=== PATIENT | male | born 1970 | race American Indian/Alaskan Native ===

== ENCOUNTER 2016-10-27 12:01 | Inpatient (IN) | payer MEDICAID, OTHER ==
[2016-10-27] MEDS ORDERED: Sodium Chloride 0.9% 10 ML Syringe FLUSH PRN (14:33)
--- NOTE | 2016-10-27 14:39 | EDM.PDOC ---
ED HPI Skin/Rash - General Chief Complaint: Skin Complaint Stated Complaint: LEFT LEG Time Seen by Provider: 10/27/16 14:35 Source: Reports: Patient History Limitations: Reports: No limitations - History of Present Illness INITIAL COMMENTS - FREE TEXT/NARRATIVE: Pt states that he has had a wound to his calf for the past 3 weeks and 3 days ago he started having pain and redness. Symptom Onset Date: 10/24/16 Timing: Reports: still present Location, Skin: Reports: lower extremity, left Quality: Reports: Throbbing Severity: moderate Known Identified Source: no Associated Symptoms: Reports: no other symptoms Similar Symptoms Previously: yes Recent Medical Care: no - Related Data Allergies Allergy/AdvReac Type Severity Reaction Status Date / Time No Known Allergies Allergy Verified 10/27/16 12:37 Home Meds: Ambulatory Orders Medication Instructions Recorded Confirmed Multivitamins/Minerals [Vitamins 1 tab PO BRK #30 tablet 12/04/13 10/27/16 and Minerals] Insulin Aspart [NovoLOG] 5 units SQ TIDAC 10/17/14 10/27/16 Insulin Detemir [Levemir] 35 units SQ BID 10/17/14 10/27/16 Lisinopril [Prinivil] 5 mg PO DAILY #30 tablet 02/28/16 10/27/16 Past Medical History HEENT History: Reports: None Cardiovascular History: Reports: Hypertension Respiratory History: Reports: None Gastrointestinal History: Reports: Hepatitis Genitourinary History: Reports: None Musculoskeletal History: Reports: Gout Neurological History: Reports: None Psychiatric History: Reports: Addiction Endocrine/Metabolic History: Reports: Diabetes, type II Hematologic History: Reports: None Immunologic History: Reports: None Oncologic (Cancer) History: Reports: None Dermatologic History: Reports: None - Infectious Disease History Infectious Disease History: Reports: Hepatitis C, MRSA - Past Surgical History Head Surgeries/Procedures: Reports: None Musculoskeletal Surgical History: Reports: Amputation Other Musculoskeletal Surgeries/Procedures:: 3 toes Social & Family History - Family History Family Medical History: Noncontributory - Tobacco Use Smoking Status *Q: Current Every Day Smoker Years of Tobacco use: 35 Packs/Tins Daily: 0.5 Used Tobacco, but Quit: No Second Hand Smoke Exposure: Yes - Caffeine Use Caffeine Use: Reports: Coffee, Soda - Alcohol Use Days Per Week of Alcohol Use: 1 Number of Drinks Per Day: 3 Total Drinks Per Week: 3 - Recreational Drug Use Recreational Drug Use: Yes Drug Use in Last 12 Months: Yes Recreational Drug Type: Reports: Marijuana/Hashish Recreational Drug Use Frequency: Weekly Recreational Drug Last Use: 1week ago ED ROS GENERAL - Review of Systems Review Of Systems: See Below Skin: Reports: erythema, wound ED EXAM, SKIN/RASH Exam: See Below Exam Limited By: No limitations General Appearance: alert, WD/WN, no apparent distress Extremities: normal inspection, normal range of motion, non-tender, no pedal edema, normal capillary refill, leg pain, increased warmth, redness Neurological: alert, oriented, CN II-XII intact, normal cognition, normal gait, normal reflexes, no motor/sensory deficits Skin: Warm, No rash, Increased warmth (flutuent edges with necrotic appearing center. no drainage noted. ), Wound/incision Course - Vital Signs Last Recorded V/S: Last Vital Signs Temp 100.6 F 10/27/16 16:17 Pulse 112 H 10/27/16 12:48 Resp 20 10/27/16 12:48 BP 108/63 10/27/16 12:48 Pulse Ox 100 10/27/16 12:48 - Orders/Labs/Meds Orders: Active Orders 24 hr Category Date Time Status Insulin Regular, Human [NovoLIN R] Med 10/27/16 17:00 Active 5 unit SUBCUT BIDAC Sodium Chloride 0.9% [Normal Saline] 1,000 ml Med 10/27/16 15:35 Active IV .BOLUS Sodium Chloride 0.9% [Saline Flush] Med 10/27/16 14:33 Active 10 ml FLUSH ASDIRECTED PRN ceFAZolin [Ancef] 1 gm Med 10/27/16 16:12 Active Premix Bag 1 bag IV ONETIME Saline Lock Insert [OM.PC] Stat Oth 10/27/16 14:32 Ordered Medication Orders Sodium Chloride (Normal Saline) 1,000 mls @ 999 mls/hr IV .BOLUS ONE Stop: 10/27/16 16:35 Last Admin: 10/27/16 15:57 Dose: 999 mls/hr Cefazolin Sodium/Dextrose 1 gm (/ Premix) 50 mls @ 100 mls/hr IV ONETIME ONE Stop: 10/27/16 16:41 Insulin Human Regular (Novolin R) 5 unit SUBCUT BIDAC ROLLY PRN Reason: Protocol Last Admin: 10/27/16 15:57 Dose: 5 units Sodium Chloride (Saline Flush) 10 ml FLUSH ASDIRECTED PRN PRN Reason: Keep Vein Open Labs: Laboratory Tests 10/27/16 10/27/16 10/27/16 Range/Units 14:46 14:46 14:46 WBC 13.9 H (5.0-10.0) 10^3/uL RBC 3.94 L (4.6-6.2) 10^6/uL Hgb 11.2 L (14.0-18.0) g/dL Hct 34.0 L (40.0-54.0) % MCV 86.3 (80-100) fL MCH 28.4 (27.0-34.0) pg MCHC 32.9 L (33.0-35.0) g/dL Plt Count 268 (150-450) 10^3/uL Neut % (Auto) 78.5 H (42.2-75.2) % Lymph % (Auto) 11.0 L (20.5-50.1) % [place] % (Auto) 10.3 H (2-8) % Eos % (Auto) 0.1 L (1.0-3.0) % Baso % (Auto) 0.1 (0.0-1.0) % Sodium 128 L (135-145) mmol/L Potassium 4.1 (3.6-5.0) mmol/L Chloride 90 L (101-111) mmol/L Carbon Dioxide 24.0 (21.0-31.0) mmol/L Anion Gap 18.1 BUN 16 (7-18) mg/dL Creatinine 1.4 H (0.6-1.3) mg/dL Est Cr Clr Drug Dosing 70.22 mL/min Estimated GFR (MDRD) 55 Glucose 517 H* (74-105) mg/dL Lactic Acid 1.7 (0.5-2.2) mmol/L Calcium 8.4 (8.4-10.2) mg/dl C-Reactive Protein (0.0-1.3) mg/dL 10/27/16 Range/Units 14:46 WBC (5.0-10.0) 10^3/uL RBC (4.6-6.2) 10^6/uL Hgb (14.0-18.0) g/dL Hct (40.0-54.0) % MCV (80-100) fL MCH (27.0-34.0) pg MCHC (33.0-35.0) g/dL Plt Count (150-450) 10^3/uL Neut % (Auto) (42.2-75.2) % Lymph % (Auto) (20.5-50.1) % [place] % (Auto) (2-8) % Eos % (Auto) (1.0-3.0) % Baso % (Auto) (0.0-1.0) % Sodium (135-145) mmol/L Potassium (3.6-5.0) mmol/L Chloride (101-111) mmol/L Carbon Dioxide (21.0-31.0) mmol/L Anion Gap BUN (7-18) mg/dL Creatinine (0.6-1.3) mg/dL Est Cr Clr Drug Dosing mL/min Estimated GFR (MDRD) Glucose (74-105) mg/dL Lactic Acid (0.5-2.2) mmol/L Calcium (8.4-10.2) mg/dl C-Reactive Protein 15.2 H (0.0-1.3) mg/dL Meds: Medications Generic Name Dose Route Start Last Admin Trade Name Freq PRN Reason Stop Dose Admin Sodium Chloride 1,000 mls @ 999 mls/hr 10/27/16 15:35 10/27/16 15:57 Normal Saline IV 10/27/16 16:35 999 mls/hr .BOLUS ONE Administration Cefazolin Sodium/Dextrose 1 gm 50 mls @ 100 mls/hr 10/27/16 16:12 / Premix IV 10/27/16 16:41 ONETIME ONE Insulin Human Regular 5 unit 10/27/16 17:00 10/27/16 15:57 Novolin R SUBCUT 5 units BIDAC ROLLY Administration Protocol Sodium Chloride 10 ml 10/27/16 14:33 Saline Flush FLUSH ASDIRECTED PRN Keep Vein Open - Re-Assessments/Exams Free Text/Narrative Re-Assessment/Exam: 10/27/16 16:[address] Potts who has accepted pt for admission for cellulitis Departure - Departure Time of Disposition: 16:26 Disposition: Admitted As Inpatient 66 Condition: good Clinical Impression: Cellulitis Qualifiers: Site of cellulitis: extremity Site of cellulitis of extremity: lower extremity Laterality: left Qualified Code(s): L03.116 - Cellulitis of left lower limb Diabetes Qualifiers: Diabetes mellitus type: type 2 Diabetes mellitus complication status: with skin complications Diabetes mellitus complication detail: with other skin complication Diabetes mellitus setter automatic spinning lathe insulin use: without setter automatic spinning lathe use Qualified Code(s): E11.628 - Type 2 diabetes mellitus with other skin complications Forms: ED Department Discharge - My Orders Last 24 Hours: My Active Orders 10/27/16 14:32 Saline Lock Insert [OM.PC] Stat 10/27/16 14:33 Sodium Chloride 0.9% [Saline Flush] 10 ml FLUSH ASDIRECTED PRN 10/27/16 15:35 Sodium Chloride 0.9% [Normal Saline] 1,000 ml IV .BOLUS 10/27/16 16:12 ceFAZolin [Ancef] 1 gm Premix Bag 1 bag IV ONETIME 10/27/16 17:00 Insulin Regular, Human [NovoLIN R] 5 unit SUBCUT BIDAC - Assessment/Plan Last 24 Hours: My Active Orders 10/27/16 14:32 Saline Lock Insert [OM.PC] Stat 10/27/16 14:33 Sodium Chloride 0.9% [Saline Flush] 10 ml FLUSH ASDIRECTED PRN 10/27/16 15:35 Sodium Chloride 0.9% [Normal Saline] 1,000 ml IV .BOLUS 10/27/16 16:12 ceFAZolin [Ancef] 1 gm Premix Bag 1 bag IV ONETIME 10/27/16 17:00 Insulin Regular, Human [NovoLIN R] 5 unit SUBCUT BIDAC
[2016-10-27] MEDS ORDERED: Sodium Chloride 0.9% 1,000 ML IV ONE (15:35)
[2016-10-27] MEDS ORDERED: ceFAZolin 1 GM in Premix Bag 1 BAG IV ONE (16:12)
[2016-10-27] MEDS ORDERED: Docusate Sodium 100 MG Cap PO PRN (16:45)
[2016-10-27] MEDS ORDERED: Acetaminophen 325 MG Tab PO PRN (16:45)
[2016-10-27] MEDS ORDERED: Acetaminophen/HYDROcodone 325-10 MG Tab PO PRN (16:45)
[2016-10-27] MEDS ORDERED: Insulin Regular, Human 100 Units/ML 10 ML Vial SUBCUT SCH (17:00)
--- NOTE | 2016-10-27 17:36 | HP ---
CHIEF COMPLAINT: Pain and redness on the left leg. HISTORY OF PRESENT ILLNESS: The patient is a 46-year-old male, who was admitted through the emergency room because the patient, for the last 3 weeks, has noted a wound on his left cast and for the last 3 days, started noticing some pain and redness. Because of this, he came in to the emergency room for further evaluation and management. The patient is noted to have cellulitis of the left leg. Lab workup showed also some systemic inflammatory syndrome as well as uncontrolled diabetes mellitus. REVIEW OF SYSTEMS: The patient denies any chest pain, shortness of breath, headache, abdominal pain, nausea or vomiting. PAST MEDICAL HISTORY: Remarkable for: 1. Diabetes mellitus, on insulin. 2. Hypertension. 3. History of hepatitis C. 4. MRSA. SOCIAL HISTORY: The patient is a smoker, about half pack per day. Drinks alcohol about 3 drinks per week. Admits to recreational drug use/marijuana. ALLERGIES: No known drug allergies. FAMILY HISTORY: Noncontributory. HOME MEDICATIONS: 1. Multivitamins. 2. NovoLog 5 units t.i.d. 3. Levemir 35 units b.i.d. 4. Lisinopril 5 mg daily. PHYSICAL EXAMINATION: General: The patient is alert and oriented, not in any acute distress. Vital Signs: Blood pressure is 108/63, pulse of 112, temperature of 100.6, respirations 20, saturation 100% on room air. SHEENT: Normocephalic. There is pink palpebral conjunctiva. Sclerae anicteric. No JVD. No lymphadenopathy. Heart: Regular rate and rhythm. It is regular, slightly tachycardic. No gallops. No rubs. Lungs: Equal bilaterally. No crackles. No wheezing. Abdomen: Soft and nontender. Bowel sounds positive. Extremities: Remarkable for reproducible tenderness, warmth, and redness on the left leg with necrotic ulcer that is dry on on the calf. LABORATORY AND X-RAY DATA: CBC; WBC 13.9, hemoglobin is 11.2, hematocrit is 34, platelets is 268. Comp panel; sodium is 128, chloride of 90, creatinine of 1.4. Random blood sugar is 517. C-reactive protein is 15.2. ADMITTING DIAGNOSES: 1. Cellulitis of the left lower leg. 2. Uncontrolled diabetes mellitus. 3. Hyponatremia and hypokalemia. 4. History of methicillin-resistant Staphylococcus aureus. 5. Hepatitis C. TREATMENT PLAN: The patient is going to be admitted to General Medicine floor. He will be empirically started on IV vancomycin to cover MRSA and we will also put him on Levaquin. We will increase his NovoLog to 10 units three times a day for his diabetes. We will continue with Levemir. We will also continue with monitoring of the blood sugar four times a da. We will put him on Lovenox for DVT prophylaxis. The rest of the management as necessary. The patient is a full code. [facility] /[id number]
[2016-10-27] MEDS: Levofloxacin/Dextrose 5%-Water 500 MG in Premix Bag 1 BAG IV SCH (17:42)
[2016-10-27] MEDS: Multivitamins, Therapeutic with Minerals Tab PO SCH (17:43)
[2016-10-27] MEDS: Insulin Aspart 100 Units/ML 3 ML Pen SUBCUT SCH (17:43)
[2016-10-27] MEDS: Nicotine 14 MG/24 Hr Patch TRDERM SCH (17:44)
[2016-10-27] MEDS: Sodium Chloride 0.9% 1,000 ML IV SCH (18:15)
[2016-10-27] MEDS: Insulin Detemir 100 Units/ML 3 ML Pen SUBCUT SCH (20:51)
[2016-10-28] MEDS: Sodium Chloride 0.9% 1,000 ML IV SCH ×2 (05:04→15:28)
[2016-10-28 06:56] LABS: CHLORIDE,CL 96 mmol/L (101-111); SODIUM,NA 132 mmol/L (135-145)
[2016-10-28] MEDS: oxyCODONE 5 MG Tab PO PRN ×3 (08:42→19:57)
[2016-10-28] MEDS: Lisinopril 5 MG Tab PO SCH (08:42)
[2016-10-28] MEDS: Multivitamins, Therapeutic with Minerals Tab PO SCH (08:42)
[2016-10-28] MEDS: Nicotine 14 MG/24 Hr Patch TRDERM SCH (08:43)
[2016-10-28] MEDS: Insulin Aspart 100 Units/ML 3 ML Pen SUBCUT SCH ×3 (08:44→17:00)
[2016-10-28] MEDS: Insulin Detemir 100 Units/ML 3 ML Pen SUBCUT SCH ×2 (08:45→21:08)
[2016-10-28] MEDS: Enoxaparin 40 MG/0.4 ML Syringe SUBCUT SCH (08:46)
[2016-10-28] MEDS ORDERED: Potassium Chloride 10 MEQ Tab.ER PO ONE (09:04)
--- NOTE | 2016-10-28 10:57 | PN ---
DATE: 10/28/2016 SUBJECTIVE: The patient had a good night sleep. He still complains of some pain on the left leg, but the erythema is slowly improving. The patient denies any chest pain, shortness of breath, abdominal pain, or any other complaints. LABORATORY DATA: Lab workup this morning. Blood sugar is 178 (improving). CBC; WBC is 14.6, hemoglobin is 9.9, hematocrit is 30.1, platelet is 249. Chem- 6; potassium is 3.3, chloride of 96, sodium is 132 (improving). OBJECTIVE: Vital Signs: Blood pressure is 116/80, pulse of 89, respirations of 20, temperature of 99.8. Heart: Regular rate and rhythm. Normal S1 and S2. No gallops. No rubs. Lungs: Equal bilaterally. No crackles. No wheezing. Abdomen: Soft, nontender. Bowel sounds positive. Extremities: Still remarkable for the ulcer on the left calf, but no drainage noted. The swelling and erythema are slowly improving. MEDICATIONS: Reviewed. PLAN: We will continue with his present management including the IV Levaquin and vancomycin and continue with his Levemir and NovoLog. [facility] /[id number]
[2016-10-28] MEDS: Levofloxacin/Dextrose 5%-Water 500 MG in Premix Bag 1 BAG IV SCH (16:51)
[2016-10-29] MEDS: Insulin Aspart 100 Units/ML 3 ML Pen SUBCUT SCH ×3 (08:06→17:16)
[2016-10-29] MEDS: Multivitamins, Therapeutic with Minerals Tab PO SCH (08:07)
[2016-10-29] MEDS: oxyCODONE 5 MG Tab PO PRN ×3 (08:13→21:34)
[2016-10-29] MEDS ORDERED: Sodium Chloride 0.9% 10 ML Syringe FLUSH PRN (08:57)
[2016-10-29] MEDS: Nicotine 14 MG/24 Hr Patch TRDERM SCH (08:58)
[2016-10-29] MEDS: Enoxaparin 40 MG/0.4 ML Syringe SUBCUT SCH (09:03)
[2016-10-29] MEDS: Insulin Detemir 100 Units/ML 3 ML Pen SUBCUT SCH (09:04)
[2016-10-29] MEDS: Lisinopril 5 MG Tab PO SCH (09:09)
[2016-10-29] MEDS: Levofloxacin/Dextrose 5%-Water 500 MG in Premix Bag 1 BAG IV SCH (16:56)
[2016-10-29] MEDS: Ibuprofen 200 MG Tab PO PRN (21:42)
[2016-10-30] MEDS: Insulin Aspart 100 Units/ML 3 ML Pen SUBCUT SCH ×2 (08:12→12:56)
[2016-10-30] MEDS: oxyCODONE 5 MG Tab PO PRN (08:13)
--- NOTE | 2016-10-30 08:56 | PN ---
DATE: 10/29/2016 SUBJECTIVE: The patient continues to do well. The erythema and firmness and induration on the left lower leg actually is getting better and is getting softer. The patient denies any fever, chills, chest pain, shortness of breath, nausea, vomiting. Blood sugar this morning is 205. OBJECTIVE: Vital Signs: Blood pressure is 89/53, pulse of 92, respiration of 20, temperature of 99.2. Heart: Regular rate and rhythm. Normal S1 and S2. No gallops. No rubs. Lungs: Equal bilaterally. No crackles. No wheezing. Abdomen: Soft, nontender. Bowel sounds positive. Extremities: Still remarkable for the dry ulcer on the calf and there is still some mild erythema, but the induration is slowly improving. MEDICATIONS: Reviewed. PLAN: We will continue with his present management and continue with IV antibiotics. We will recheck CBC and Chem-6 in a.m. [facility] /[id number]
[2016-10-30] MEDS: Multivitamins, Therapeutic with Minerals Tab PO SCH (10:24)
[2016-10-30] MEDS: Ibuprofen 200 MG Tab PO PRN (10:24)
[2016-10-30] MEDS: Insulin Detemir 100 Units/ML 3 ML Pen SUBCUT SCH (10:25)
[2016-10-30] MEDS: Enoxaparin 40 MG/0.4 ML Syringe SUBCUT SCH (10:25)
[2016-10-30] MEDS: Nicotine 14 MG/24 Hr Patch TRDERM SCH (10:25)
[2016-10-30] MEDS: Lisinopril 5 MG Tab PO SCH (10:28)
--- NOTE | 2016-10-30 12:25 | PCM.DCSUM1 ---
Discharge Summary - Hospital Course Free Text/Narrative:: 46 old male with history of hepatitis C, diabetes mellitus, osteomyelitis presented to the emergency room on 10/27/16 for left calf swelling, redness, pain. problem started 3 weeks ago with pimple that started getting bigger. 2 days before admission he started having the pain in left leg. He admitted also feeling warm and cold. on admission his temperature was 100.6 Fahrenheit. WBC 13.9. Hemoglobin 11.2. Sodium 128. Creatinine 1.4. Random blood sugar 517. CRP 15.2. He was admitted for cellulitis of the left lower leg and started on vancomycin and Levaquin. According to patient his pain and swelling is getting worse. today when he was in wheelchair and when he got up to bed he was not able to bear weight on his left leg. visit left lower extremities shows bulging with redness, fluctuation, and tenderness in the calf area. since yesterday he denies fever, chills, nausea, vomiting, headache, stomach pain, diarrhea, or any other symptoms. I spoke to Dr. Colvin, hospitalist at [facility] for transferring to patient for surgical evaluation. He kindly accepted the patient. patient does not have anybody to give him a ride. I believe it's resolved to transfer him by ambulance and S team. Patient was stable upon transfer - Discharge Data Discharge Date: 10/30/16 Discharge Disposition: DC/Tfer to Acute Hospital 02 Condition: Stable - Discharge Plan Home Medications: Home Meds Multivitamins/Minerals [Vitamins and Minerals] 1 tab PO BRK #30 tablet 12/04/13 [Rx] Insulin Aspart [NovoLOG] 5 units SQ TIDAC 10/17/14 [History] Insulin Detemir [Levemir] 35 units SQ BID 10/17/14 [History] Lisinopril [Prinivil] 5 mg PO DAILY #30 tablet 02/28/16 [Rx] - Review of Systems General: Denies: Appetite HEENT: Reports: no symptoms Pulmonary: Reports: no symptoms Cardiovascular: Reports: No Symptoms Gastrointestinal: Reports: No symptoms Genitourinary: Reports: no symptoms Musculoskeletal: Reports: no symptoms Skin: Denies: jaundice, pallor Neurological: Reports: No Symptoms Psychiatric: Reports: no symptoms - Patient Data Vitals - Most Recent: Last Vital Signs Temp 37.2 C 10/30/16 11:58 Pulse 96 10/30/16 11:58 Resp 20 10/30/16 11:58 BP 146/85 H 10/30/16 11:58 Pulse Ox 100 10/30/16 11:58 Weight - Most Recent: 75.387 kg I&O - Last 24 hours: Intake & Output 10/29/16 10/30/16 10/30/16 22:59 06:59 14:59 Intake Total 100 250 Balance 100 250 Lab Results - Last 24 hrs: Laboratory Results - last 24 hr 10/29/16 10/29/16 10/29/16 Range/Units 17:11 20:38 21:48 WBC (5.0-10.0) 10^3/uL RBC (4.6-6.2) 10^6/uL Hgb (14.0-18.0) g/dL Hct (40.0-54.0) % MCV (80-100) fL MCH (27.0-34.0) pg MCHC (33.0-35.0) g/dL Plt Count (150-450) 10^3/uL Neut % (Auto) (42.2-75.2) % Lymph % (Auto) (20.5-50.1) % [place] % (Auto) (2-8) % Eos % (Auto) (1.0-3.0) % Baso % (Auto) (0.0-1.0) % Sodium (135-145) mmol/L Potassium (3.6-5.0) mmol/L Chloride (101-111) mmol/L Carbon Dioxide (21.0-31.0) mmol/L Anion Gap BUN (7-18) mg/dL Creatinine (0.6-1.3) mg/dL Est Cr Clr Drug Dosing mL/min Estimated GFR (MDRD) Glucose (74-105) mg/dL POC Glucose 267 H 57 L 113 H (70-105) mg/dl Calcium (8.4-10.2) mg/dl Vancomycin Trough (10-15) ug/ml 10/30/16 10/30/16 10/30/16 Range/Units 07:46 08:37 08:37 WBC 11.4 H (5.0-10.0) 10^3/uL RBC 3.46 L (4.6-6.2) 10^6/uL Hgb 9.8 L (14.0-18.0) g/dL Hct 29.7 L (40.0-54.0) % MCV 85.8 (80-100) fL MCH 28.3 (27.0-34.0) pg MCHC 33.0 (33.0-35.0) g/dL Plt Count 256 (150-450) 10^3/uL Neut % (Auto) 82.9 H (42.2-75.2) % Lymph % (Auto) 10.2 L (20.5-50.1) % [place] % (Auto) 5.9 (2-8) % Eos % (Auto) 0.9 L (1.0-3.0) % Baso % (Auto) 0.1 (0.0-1.0) % Sodium (135-145) mmol/L Potassium (3.6-5.0) mmol/L Chloride (101-111) mmol/L Carbon Dioxide (21.0-31.0) mmol/L Anion Gap BUN (7-18) mg/dL Creatinine (0.6-1.3) mg/dL Est Cr Clr Drug Dosing mL/min Estimated GFR (MDRD) Glucose (74-105) mg/dL POC Glucose 283 H (70-105) mg/dl Calcium (8.4-10.2) mg/dl Vancomycin Trough 29.2 H (10-15) ug/ml 10/30/16 10/30/16 Range/Units 08:37 10:47 WBC (5.0-10.0) 10^3/uL RBC (4.6-6.2) 10^6/uL Hgb (14.0-18.0) g/dL Hct (40.0-54.0) % MCV (80-100) fL MCH (27.0-34.0) pg MCHC (33.0-35.0) g/dL Plt Count (150-450) 10^3/uL Neut % (Auto) (42.2-75.2) % Lymph % (Auto) (20.5-50.1) % [place] % (Auto) (2-8) % Eos % (Auto) (1.0-3.0) % Baso % (Auto) (0.0-1.0) % Sodium 134 L (135-145) mmol/L Potassium 3.6 (3.6-5.0) mmol/L Chloride 100 L (101-111) mmol/L Carbon Dioxide 26.0 (21.0-31.0) mmol/L Anion Gap 11.6 BUN 18 (7-18) mg/dL Creatinine 1.8 H (0.6-1.3) mg/dL Est Cr Clr Drug Dosing 54.62 mL/min Estimated GFR (MDRD) 41 Glucose 335 H (74-105) mg/dL POC Glucose 310 H (70-105) mg/dl Calcium 8.0 L (8.4-10.2) mg/dl Vancomycin Trough (10-15) ug/ml LESTER Results - Last 24 hrs: Microbiology 10/27/16 17:17 Aerobic Blood Culture - Preliminary Blood - Venous - Lab Draw NO GROWTH AFTER 2 DAYS Anaerobic Blood Culture - Preliminary NO GROWTH AFTER 2 DAYS 10/27/16 17:13 Aerobic Blood Culture - Preliminary Blood - Venous NO GROWTH AFTER 2 DAYS Anaerobic Blood Culture - Preliminary NO GROWTH AFTER 2 DAYS Med Orders - Current: Current Medications Docusate Sodium (Colace) 100 mg PO BID PRN PRN Reason: Constipation Enoxaparin Sodium (Lovenox) 40 mg SUBCUT DAILY [facility] Last Admin: 10/30/16 10:25 Dose: 40 mg Levofloxacin/Dextrose 500 mg/ (Premix) 100 mls @ 100 mls/hr IV Q24H [facility] Last Admin: 10/29/16 16:56 Dose: 100 mls/hr Vancomycin HCl 1.25 gm/ Sodium (Chloride) 250 mls @ 166.667 mls/hr IV Q24H [facility] Ibuprofen (Motrin) 200 mg PO QID PRN PRN Reason: Pain Last Admin: 10/30/16 10:24 Dose: 200 mg Insulin Aspart (Novolog) 10 unit SUBCUT TIDAC [facility] Last Admin: 10/30/16 08:12 Dose: 10 units Insulin Detemir (Levemir) 35 unit SUBCUT BID [facility] Last Admin: 10/30/16 10:25 Dose: 35 units Lisinopril (Prinivil) 5 mg PO DAILY [facility] Last Admin: 10/30/16 10:28 Dose: 5 mg Miscellaneous Information (Remove Patch) 1 ea TRDERM DAILY [facility] Last Admin: 10/30/16 10:33 Dose: Not Given Multivitamins/Minerals (Vitamins And Minerals) 1 tab PO BRK [facility] Last Admin: 10/30/16 10:24 Dose: 1 tab Nicotine (Habitrol) 14 mg TRDERM DAILY [facility] Last Admin: 10/30/16 10:25 Dose: Not Given Oxycodone HCl (Oxycodone) 5 mg PO Q4H PRN PRN Reason: Pain Last Admin: 10/30/16 08:13 Dose: 5 mg Sodium Chloride (Saline Flush) 10 ml FLUSH ASDIRECTED PRN PRN Reason: Keep Vein Open Last Admin: 10/29/16 16:56 Dose: 10 ml Sodium Chloride (Saline Flush) 10 ml FLUSH ASDIRECTED PRN PRN Reason: Keep Vein Open Vancomycin HCl (Pharmacy To Dose - Vancomycin) 1 dose .XX ASDIRECTED [facility] Discontinued Medications Acetaminophen (Tylenol) 650 mg PO Q4H PRN PRN Reason: Pain (Mild 1-3)/fever Hydrocodone Bitart/Acetaminophen ([place] 325-10 Mg) 1 tab PO Q4H PRN PRN Reason: Pain (moderate 4-6) Last Admin: 10/27/16 19:27 Dose: 1 tab Sodium Chloride (Normal Saline) 1,000 mls @ 999 mls/hr IV .BOLUS ONE Stop: 10/27/16 16:35 Last Infusion: 10/27/16 17:43 Dose: Infused Cefazolin Sodium/Dextrose 1 gm (/ Premix) 50 mls @ 100 mls/hr IV ONETIME ONE Stop: 10/27/16 16:41 Last Admin: 10/27/16 16:27 Dose: 100 mls/hr Sodium Chloride (Normal Saline) 1,000 mls @ 60 mls/hr IV ASDIRECTED [facility] Last Admin: 10/28/16 15:28 Dose: 125 mls/hr Vancomycin HCl 1.25 gm/ Sodium (Chloride) 250 mls @ 166.667 mls/hr IV Q8H [facility] Last Admin: 10/28/16 08:46 Dose: 166.667 mls/hr Vancomycin HCl 1.25 gm/ Sodium (Chloride) 250 mls @ 166.667 mls/hr IV Q12H [facility] Last Infusion: 10/30/16 00:04 Dose: Infused Insulin Human Regular (Novolin R) 5 unit SUBCUT BIDAC ROLLY PRN Reason: Protocol Last Admin: 10/27/16 15:57 Dose: 5 units Potassium Chloride (Klor-Con 10) 40 meq PO ONETIME ONE Stop: 10/28/16 09:05 Last Admin: 10/28/16 09:46 Dose: 40 meq - Exam General: Reports: alert, oriented, cooperative. Denies: no acute distress, mild distress, moderate distress, severe distress, sedated, lethargic, obtunded HEENT: Reports: Pupils equal, Pupils reactive, Mucous membr. moist/pink. Denies : Scleral icterus Neck: Reports: supple, trachea midline, no JVD Lungs: Reports: Clear to auscultation, Normal respiratory effort. Denies: Decreased breath sounds, Crackles, Rales, Rhonchi, Rub, Stridor, Wheezing Cardiovascular: Reports: Regular Rate, Regular Rhythm, No Murmurs Abdomen: Reports: bowel sounds present, soft, no tenderness, no distension. Denies: CVA tenderness (Male) Exam: No hernia Rectal (Males) Exam: Deferred Back Exam: Reports: normal inspection, full range of motion Extremities: Reports: no edema, normal pulses, no clubbing, calf tenderness (on left side, with redness and fluctuation) Skin: Reports: warm Neurological: Reports: no new focal deficit Psy/Mental Status: Reports: alert, normal affect, normal mood *Q Meaningful Use (DIS) - VTE *Q VTE Criteria *Q: - Stroke *Q Stroke Criteria *Q: - AMI *Q AMI Criteria *Q:
[2016-10-30 13:08] VITALS: BP 98/57
== END 2016-10-30 13:45 | DRG 638 ==
LOC: DL.ED 12:01 → DL.MS 16:44
PROVIDERS: ADMIT Internal Medicine; ATTEND Internal Medicine
DX: E11.628 Type 2 diabetes mellitus with other skin complications (principal); L03.116 Cellulitis of left lower limb; E87.1 Hypo-osmolality and hyponatremia; F17.210 Nicotine dependence, cigarettes, uncomplicated; Z89.429 Acquired absence of other toe(s), unspecified side; Z79.4 Long term (current) use of insulin; E87.6 Hypokalemia; Z86.14 Personal history of Methicillin resistant Staphylococcus aureus infection; I10 Essential (primary) hypertension; Z86.19 Personal history of other infectious and parasitic diseases; F12.90 Cannabis use, unspecified, uncomplicated; Z79.899 Other long term (current) drug therapy
CPT/HCPCS: 36415; 80048; 80202; 82962; 83605; 85025; 86140; 87040; 96365; 96367; 96372; 99284; A9270-GY; J0690; J1650; J1815-GY; J1956; J3370; J7030; J7050

== ENCOUNTER 2017-01-23 12:17 | Emergency (ER) | payer MEDICAID, OTHER ==
[2017-01-23 12:42] VITALS: BP 129/90
--- NOTE | 2017-01-23 12:58 | EDM.PDOC ---
ED HPI GENERAL MEDICAL PROBLEM - General Chief Complaint: Skin Complaint Stated Complaint: FROM [facility] Time Seen by Provider: 01/23/17 12:54 Source of Information: Reports: Patient History Limitations: Reports: No Limitations - History of Present Illness INITIAL COMMENTS - FREE TEXT/NARRATIVE: Pt sent from [facility] by Dr. Hodge for potential osteomyelitis. Has a non healing ulcer to the bottom of left foot. C/o pain to area of wound however denies other complaints such as fever or chills. Onset Date: 12/28/16 Duration: Constant Location: Reports: Lower Extremity, Left Quality: Reports: Ache Worsens with: Reports: None Associated Symptoms: Reports: No Other Symptoms Treatments LOT PORTER: Reports: Dressing(s) Left Feet Pain Score (Numeric/FACES): 8 - Related Data Allergies Allergy/AdvReac Type Severity Reaction Status Date / Time No Known Allergies Allergy Verified 10/27/16 12:37 Home Meds: Home Meds Multivitamins/Minerals [Vitamins and Minerals] 1 tab PO BRK #30 tablet 12/04/13 [Rx] Insulin Aspart [NovoLOG] 7 units SQ TIDAC 10/17/14 [History] Insulin Detemir [Levemir] 35 units SQ BID 10/17/14 [History] Lisinopril [Prinivil] 5 mg PO DAILY #30 tablet 02/28/16 [Rx] Past Medical History HEENT History: Reports: None Cardiovascular History: Reports: Hypertension Respiratory History: Reports: None Gastrointestinal History: Reports: Hepatitis Genitourinary History: Reports: None Musculoskeletal History: Reports: Gout Neurological History: Reports: None Psychiatric History: Reports: Addiction Endocrine/Metabolic History: Reports: Diabetes, Type II Hematologic History: Reports: None Immunologic History: Reports: None Oncologic (Cancer) History: Reports: None Dermatologic History: Reports: None - Infectious Disease History Infectious Disease History: Reports: Chicken Pox - Past Surgical History Head Surgeries/Procedures: Reports: None Musculoskeletal Surgical History: Reports: Amputation Other Musculoskeletal Surgeries/Procedures:: 3 toes Social & Family History - Family History Family Medical History: Noncontributory - Tobacco Use Smoking Status *Q: Current Every Day Smoker Years of Tobacco use: 35 Packs/Tins Daily: 0.5 Used Tobacco, but Quit: No Second Hand Smoke Exposure: Yes - Caffeine Use Caffeine Use: Reports: Coffee, Soda, Tea - Alcohol Use Days Per Week of Alcohol Use: 1 Number of Drinks Per Day: 3 Total Drinks Per Week: 3 - Recreational Drug Use Recreational Drug Use: Yes Drug Use in Last 12 Months: Yes Recreational Drug Type: Reports: Marijuana/Hashish Recreational Drug Use Frequency: Weekly Recreational Drug Last Use: 1week ago ED ROS GENERAL - Review of Systems Review Of Systems: ROS reveals no pertinent complaints other than HPI. ED EXAM, SKIN/RASH Exam: See Below Exam Limited By: No Limitations General Appearance: Alert, WD/WN, No Apparent Distress Respiratory/Chest: No Respiratory Distress, Lungs Clear, Normal Breath Sounds, No Accessory Muscle Use, Chest Non-Tender Cardiovascular: Normal Peripheral Pulses, Regular Rate, Rhythm, No Edema, No Gallop, No JVD, No Murmur, No Rub Peripheral Pulses: 4+: Posterior Tibial (L), Posterior Tibial (R), Dorsalis Pedis (L), Dorsalis Pedis (R) Extremities: Normal Inspection, Normal Range of Motion, No Pedal Edema, Normal Capillary Refill Skin: Warm, Erythema, Wound/Incision Location, Skin: Soles (left foot at toes ) Characteristics: Confluent, Erythematous (no necrosis noted, pale borders with red center) Course - Vital Signs Last Recorded V/S: Last Vital Signs Temp 98.1 F 01/23/17 12:23 Pulse 94 01/23/17 12:23 Resp 18 01/23/17 12:23 BP 129/90 01/23/17 12:23 Pulse Ox 98 01/23/17 12:23 - Orders/Labs/Meds Labs: Laboratory Tests 01/23/17 01/23/17 01/23/17 Range/Units 13:17 13:17 13:17 WBC 9.0 (5.0-10.0) 10^3/uL RBC 3.78 L (4.6-6.2) 10^6/uL Hgb 10.8 L (14.0-18.0) g/dL Hct 32.9 L (40.0-54.0) % MCV 87.0 (80-100) fL MCH 28.6 (27.0-34.0) pg MCHC 32.8 L (33.0-35.0) g/dL Plt Count 293 (150-450) 10^3/uL Neut % (Auto) 68.1 (42.2-75.2) % Lymph % (Auto) 21.8 (20.5-50.1) % [place] % (Auto) 7.5 (2-8) % Eos % (Auto) 2.3 (1.0-3.0) % Baso % (Auto) 0.3 (0.0-1.0) % ESR 48 H (0-15) mm/hr Sodium 138 (135-145) mmol/L Potassium 4.2 (3.6-5.0) mmol/L Chloride 101 (101-111) mmol/L Carbon Dioxide 27.0 (21.0-31.0) mmol/L Anion Gap 14.2 BUN 22 H (7-18) mg/dL Creatinine 1.6 H (0.6-1.3) mg/dL Est Cr Clr Drug Dosing 61.44 mL/min Estimated GFR (MDRD) 47 BUN/Creatinine Ratio 13.75 Glucose 307 H (74-105) mg/dL Lactic Acid 1.1 (0.5-2.2) mmol/L Calcium 9.0 (8.4-10.2) mg/dl Total Bilirubin 0.5 (0.2-1.0) mg/dL AST 29 (10-42) IU/L ALT 30 (10-60) IU/L Alkaline Phosphatase 92 (42-121) IU/L C-Reactive Protein (0.0-1.3) mg/dL Total Protein 7.8 (6.7-8.2) g/dl Albumin 3.4 (3.2-5.5) g/dl Globulin 4.4 Albumin/Globulin Ratio 0.77 06/27/17 Range/Units 13:17 WBC (5.0-10.0) 10^3/uL RBC (4.6-6.2) 10^6/uL Hgb (14.0-18.0) g/dL Hct (40.0-54.0) % MCV (80-100) fL MCH (27.0-34.0) pg MCHC (33.0-35.0) g/dL Plt Count (150-450) 10^3/uL Neut % (Auto) (42.2-75.2) % Lymph % (Auto) (20.5-50.1) % [place] % (Auto) (2-8) % Eos % (Auto) (1.0-3.0) % Baso % (Auto) (0.0-1.0) % ESR (0-15) mm/hr Sodium (135-145) mmol/L Potassium (3.6-5.0) mmol/L Chloride (101-111) mmol/L Carbon Dioxide (21.0-31.0) mmol/L Anion Gap BUN (7-18) mg/dL Creatinine (0.6-1.3) mg/dL Est Cr Clr Drug Dosing mL/min Estimated GFR (MDRD) BUN/Creatinine Ratio Glucose (74-105) mg/dL Lactic Acid (0.5-2.2) mmol/L Calcium (8.4-10.2) mg/dl Total Bilirubin (0.2-1.0) mg/dL AST (10-42) IU/L ALT (10-60) IU/L Alkaline Phosphatase (42-121) IU/L C-Reactive Protein 0.6 (0.0-1.3) mg/dL Total Protein (6.7-8.2) g/dl Albumin (3.2-5.5) g/dl Globulin Albumin/Globulin Ratio Meds: Medications Discontinued Medications Generic Name Dose Route Start Last Admin Trade Name Freq PRN Reason Stop Dose Admin Levofloxacin 500 mg 01/23/17 16:24 Levaquin PO 01/23/17 16:25 ONETIME ONE Levofloxacin 250 mg 01/23/17 16:24 Levaquin PO 01/23/17 16:25 ONETIME ONE Tramadol HCl 50 mg 01/23/17 16:23 Ultram PO 01/23/17 16:24 ONETIME ONE - Re-Assessments/Exams Free Text/Narrative Re-Assessment/Exam: 01/23/17 16:[address] Lee about radiologic findings. Due to no increase in WBC, CRP and mild ESR elevation, does not require admission for inpatient. Recommends Levaquin PO 750 mg for 14 days and re-evaluation of the wound. Instructions to keep wound clean with antibacterial soap given to patient and he verbalizes understanding. Departure - Departure Time of Disposition: 16:29 Disposition: Home, Self-Care 01 Condition: Good Clinical Impression: Diabetic foot ulcer Diabetic ulcer of foot associated with diabetes mellitus due to underlying condition, limited to breakdown of skin Qualifiers: Diabetic foot ulcer location: heel Laterality: left Qualified Code(s): E08.621 - Diabetes mellitus due to underlying condition with foot ulcer; L97.421 - Non- pressure chronic ulcer of left heel and midfoot limited to breakdown of skin - Discharge Information Instructions: Diabetes and Foot Care Forms: ED Department Discharge Additional Instructions: Make sure to keep the wound clean with antibacterial soap such as dial to decrease risk of infection. Take the antibiotic daily for 2 weeks. Keep your follow up appointment on . Return for any foul smelling drainage, increased warmth or increased pain to the foot.
[2017-01-23] MEDS ORDERED: traMADol 50 MG Tab PO ONE (16:23)
[2017-01-23] MEDS ORDERED: Levofloxacin 250 MG Tab PO ONE (16:24)
[2017-01-23] MEDS ORDERED: Levofloxacin 500 MG Tab PO ONE (16:24)
== END 2017-01-23 16:45 | disposition home or self-care (01) ==
LOC: DL.ED 12:17
DX: E08.621 Diabetes mellitus due to underlying condition with foot ulcer (principal); L97.421 Non-pressure chronic ulcer of left heel and midfoot limited to breakdown of skin; I10 Essential (primary) hypertension; F17.210 Nicotine dependence, cigarettes, uncomplicated; M10.9 Gout, unspecified; Z79.4 Long term (current) use of insulin
CPT/HCPCS: 36415; 73630; 80053; 83605; 85025; 85651; 86140; 99283; A9270

== ENCOUNTER 2017-11-26 16:34 | Emergency (ER) | payer MEDICAID, OTHER ==
[2017-11-26] MEDS ORDERED: Sodium Chloride 0.9% 1,000 ML IV ONE ×2 (16:56→18:11)
[2017-11-26] MEDS ORDERED: Ondansetron 4 MG/2 ML SDV IV ONE (17:00)
[2017-11-26 17:15] VITALS: BP 169/117
[2017-11-26 17:33] LABS: ACETAMINOPHEN < 10
[2017-11-26] MEDS ORDERED: Insulin Regular, Human 100 Units/ML 3 ML Vial IV ONE (17:49)
[2017-11-26] MEDS ORDERED: Pantoprazole 40 MG Vial IVPUSH ONE (17:54)
[2017-11-26] MEDS ORDERED: Octreotide 100 MCG/ML SDV IVPUSH ONE (17:54)
[2017-11-26] MEDS ORDERED: Metoclopramide 10 MG/2 ML SDV IVPUSH ONE (17:54)
--- NOTE | 2017-11-26 18:03 | EDM.PDOC ---
ED HPI GENERAL MEDICAL PROBLEM - General Chief Complaint: Diabetic Complaint Stated Complaint: IN BY AMBULANCE VOMITING Time Seen by Provider: 11/26/17 17:05 Source of Information: Reports: Patient, EMS History Limitations: Reports: No Limitations - History of Present Illness INITIAL COMMENTS - FREE TEXT/NARRATIVE: This 47 yo male patient was brought to the ED by [facility] due to nausea, vomiting and bloody vomit. The patient reports his nausea started yesterday, but the bloody emesis started earlier today. The patient reports increased nausea and vomiting when he lays in his side. The patient is a diabetic and his sugars read high. The patient reports being hospitalized for DKA as well as GI bleeding in the past. Onset Date: 11/25/17 Duration: Constant, Getting Worse Location: Reports: Abdomen Quality: Reports: Other Severity: Moderate Improves with: Reports: None Worsens with: Reports: None Associated Symptoms: Reports: No Other Symptoms Epigastric Pain Score (Numeric/FACES): 8 - Related Data Allergies Allergy/AdvReac Type Severity Reaction Status Date / Time No Known Allergies Allergy Verified 10/27/16 12:37 Home Meds: Home Meds Insulin Aspart [NovoLOG] 7 units SQ TIDAC 10/17/14 [History] Insulin Detemir [Levemir] 35 units SQ BID 10/17/14 [History] Lisinopril [Prinivil] 5 mg PO DAILY #30 tablet 02/28/16 [Rx] Past Medical History HEENT History: Reports: None Cardiovascular History: Reports: Hypertension Respiratory History: Reports: None Gastrointestinal History: Reports: Hepatitis Genitourinary History: Reports: None Musculoskeletal History: Reports: Gout Neurological History: Reports: None Psychiatric History: Reports: Addiction Endocrine/Metabolic History: Reports: Diabetes, Type II Hematologic History: Reports: None Immunologic History: Reports: None Oncologic (Cancer) History: Reports: None Dermatologic History: Reports: None - Infectious Disease History Infectious Disease History: Reports: Chicken Pox - Past Surgical History Head Surgeries/Procedures: Reports: None Musculoskeletal Surgical History: Reports: Amputation, Other (See Below) Other Musculoskeletal Surgeries/Procedures:: 3 toes Social & Family History - Family History Family Medical History: Noncontributory - Tobacco Use Smoking Status *Q: Current Every Day Smoker Years of Tobacco use: 35 Packs/Tins Daily: 0.5 Used Tobacco, but Quit: No Second Hand Smoke Exposure: Yes - Caffeine Use Caffeine Use: Reports: Coffee, Soda, Tea - Alcohol Use Days Per Week of Alcohol Use: 1 Number of Drinks Per Day: 3 Total Drinks Per Week: 3 - Recreational Drug Use Recreational Drug Use: No Drug Use in Last 12 Months: Yes Recreational Drug Type: Reports: Marijuana/Hashish Recreational Drug Use Frequency: Weekly Recreational Drug Last Use: 1week ago ED ROS GENERAL - Review of Systems Review Of Systems: ROS reveals no pertinent complaints other than HPI. ED EXAM GENERAL NO PERIP PULSE - Physical Exam Exam: See Below Exam Limited By: No Limitations General Appearance: Alert, WD/WN, Severe Distress, Thin Eye Exam: Bilateral Eye: EOMI, Normal Inspection, PERRL Ears: Normal External Exam, Normal Canal, Hearing Grossly Normal, Normal TMs Nose: Normal Inspection, Normal Mucosa, No Blood Throat/Mouth: Normal Inspection, Normal Lips, Normal Teeth, Normal Gums, Normal Oropharynx, Normal Voice, No Airway Compromise Head: Atraumatic, Normocephalic Neck: Normal Inspection, Supple, Non-Tender, Full Range of Motion Respiratory/Chest: No Respiratory Distress, Lungs Clear, Normal Breath Sounds, No Accessory Muscle Use, Chest Non-Tender Cardiovascular: Normal Peripheral Pulses, Regular Rate, Rhythm, No Edema, No Gallop, No JVD, No Murmur, No Rub GI/Abdominal: Tender (generalized tenderness) (Male) Exam: Deferred Rectal (Males) Exam: Deferred Back Exam: Normal Inspection, Full Range of Motion, NT Extremities: Normal Inspection, Normal Range of Motion, Non-Tender, Normal Capillary Refill, No Pedal Edema Neurological: Alert, Oriented, CN II-XII Intact, Normal Cognition, Normal Gait, Normal Reflexes, No Motor/Sensory Deficits Psychiatric: Anxious Skin Exam: Warm, Dry, Intact, Normal Color, No Rash Lymphatic: No Adenopathy Course - Vital Signs Last Recorded V/S: Last Vital Signs Temp 35.3 C 11/26/17 16:35 Pulse 122 H 11/26/17 16:35 Resp 25 H 11/26/17 16:35 BP 169/117 H 11/26/17 16:35 Pulse Ox 100 11/26/17 16:35 - Orders/Labs/Meds Orders: Active Orders 24 hr Category Date Time Status Gastric Occult/pH Collection D [RC] ASDIRECTED Care 11/26/17 18:03 Active DRUG SCREEN URINE BIORAD [URCHEM] Stat Lab 11/26/17 16:36 Ordered INR,PT,PROTHROMBIN TIME [COAG] Stat Lab 11/26/17 18:09 Received KETONES,BLOOD [CHEM] Stat Lab 11/26/17 18:09 Received UA W/MICROSCOPIC [URIN] Stat Lab 11/26/17 16:36 Ordered Sodium Chloride 0.9% [Normal Saline] 1,000 ml Med 11/26/17 18:11 Active IV .BOLUS Medication Orders Sodium Chloride (Normal Saline) 1,000 mls @ 999 mls/hr IV .BOLUS ONE Stop: 11/26/17 19:11 Last Admin: 11/26/17 18:12 Dose: 999 mls/hr Labs: Laboratory Tests 11/26/17 11/26/17 11/26/17 Range/Units 17:00 17:01 17:01 WBC 13.4 H (5.0-10.0) 10^3/uL RBC 5.92 (4.6-6.2) 10^6/uL Hgb 16.8 D (14.0-18.0) g/dL Hct 49.1 (40.0-54.0) % MCV 82.9 D (80-100) fL MCH 28.4 (27.0-34.0) pg MCHC 34.2 (33.0-35.0) g/dL Plt Count 117 L D (150-450) 10^3/uL Neut % (Auto) 86.5 H (42.2-75.2) % Lymph % (Auto) 8.7 L (20.5-50.1) % [place] % (Auto) 4.5 (2-8) % Eos % (Auto) 0.1 L (1.0-3.0) % Baso % (Auto) 0.2 (0.0-1.0) % Sodium (135-145) mmol/L Potassium (3.6-5.0) mmol/L Chloride (101-111) mmol/L Carbon Dioxide (21.0-31.0) mmol/L Anion Gap BUN (7-18) mg/dL Creatinine (0.6-1.3) mg/dL Est Cr Clr Drug Dosing mL/min Estimated GFR (MDRD) BUN/Creatinine Ratio Glucose (74-105) mg/dL POC Glucose > 500 H* (70-105) mg/dl Calcium (8.4-10.2) mg/dl Magnesium 2.0 (1.8-2.5) mg/dL Total Bilirubin (0.2-1.0) mg/dL AST (10-42) IU/L ALT (10-60) IU/L Alkaline Phosphatase (42-121) IU/L Total Protein (6.7-8.2) g/dl Albumin (3.2-5.5) g/dl Globulin Albumin/Globulin Ratio Amylase 86 (28-100) U/L Lipase 33 (22-51) U/L Salicylates < 4 Acetaminophen < 10 04/30/18 Range/Units 17:01 WBC (5.0-10.0) 10^3/uL RBC (4.6-6.2) 10^6/uL Hgb (14.0-18.0) g/dL Hct (40.0-54.0) % MCV (80-100) fL MCH (27.0-34.0) pg MCHC (33.0-35.0) g/dL Plt Count (150-450) 10^3/uL Neut % (Auto) (42.2-75.2) % Lymph % (Auto) (20.5-50.1) % [place] % (Auto) (2-8) % Eos % (Auto) (1.0-3.0) % Baso % (Auto) (0.0-1.0) % Sodium 131 L (135-145) mmol/L Potassium 4.5 (3.6-5.0) mmol/L Chloride 86 L D (101-111) mmol/L Carbon Dioxide 21.0 (21.0-31.0) mmol/L Anion Gap 28.5 BUN 43 H (7-18) mg/dL Creatinine 2.7 H (0.6-1.3) mg/dL Est Cr Clr Drug Dosing 36.02 mL/min Estimated GFR (MDRD) 25 BUN/Creatinine Ratio 15.92 Glucose 688 H* (74-105) mg/dL POC Glucose (70-105) mg/dl Calcium 9.4 (8.4-10.2) mg/dl Magnesium (1.8-2.5) mg/dL Total Bilirubin 1.3 H (0.2-1.0) mg/dL AST 35 (10-42) IU/L ALT 24 (10-60) IU/L Alkaline Phosphatase 130 H (42-121) IU/L Total Protein 9.5 H (6.7-8.2) g/dl Albumin 3.7 (3.2-5.5) g/dl Globulin 5.8 Albumin/Globulin Ratio 0.64 Amylase (28-100) U/L Lipase (22-51) U/L Salicylates Acetaminophen Meds: Medications Generic Name Dose Route Start Last Admin Trade Name Freq PRN Reason Stop Dose Admin Sodium Chloride 1,000 mls @ 999 mls/hr 11/26/17 18:11 11/26/17 18:12 Normal Saline IV 11/26/17 19:11 999 mls/hr .BOLUS ONE Administration Discontinued Medications Generic Name Dose Route Start Last Admin Trade Name Freq PRN Reason Stop Dose Admin Sodium Chloride 1,000 mls @ 999 mls/hr 11/26/17 16:56 11/26/17 16:58 Normal Saline IV 11/26/17 17:56 999 mls/hr .BOLUS ONE Administration Insulin Human Regular 5 unit 11/26/17 17:49 11/26/17 17:56 Humulin R IV 11/26/17 17:50 5 units ONETIME ONE Administration Metoclopramide HCl 10 mg 11/26/17 17:54 11/26/17 18:05 Reglan IVPUSH 11/26/17 17:55 10 mg ONETIME ONE Administration Octreotide Acetate 50 mcg 11/26/17 17:54 11/26/17 18:06 Sandostatin IVPUSH 11/26/17 17:55 50 mcg ONETIME ONE Administration Ondansetron HCl 4 mg 11/26/17 17:00 11/26/17 17:06 Zofran IV 11/26/17 17:01 4 mg ONETIME ONE Administration Pantoprazole Sodium 80 mg 11/26/17 17:54 11/26/17 18:05 Protonix Iv IVPUSH 11/26/17 17:55 80 mg .BOLUS ONE Administration Departure - Departure Time of Disposition: 18:26 Disposition: DC/Tfer to Acute Hospital 02 Condition: Poor Clinical Impression: Upper GI bleed DKA (diabetic ketoacidoses) Qualifiers: Diabetes mellitus type: type 1 Diabetes mellitus complication detail: without coma Qualified Code(s): E10.10 - Type 1 diabetes mellitus with ketoacidosis without coma - Discharge Information Forms: Interfacility Transfer EMTALA Care Plan Goals: Discussed the history, examination, lab, and treatments with Dr. Schafer ( Hospitalist with [facility] in [place]). Dr. Schafer accepted the patient for continued evaluation and further management. The patient will be transported by [facility]. - My Orders Last 24 Hours: My Active Orders 11/26/17 16:36 DRUG SCREEN URINE BIORAD [URCHEM] Stat UA W/MICROSCOPIC [URIN] Stat 11/26/17 18:03 Gastric Occult/pH Collection D [RC] ASDIRECTED 11/26/17 18:09 INR,PT,PROTHROMBIN TIME [COAG] Stat KETONES,BLOOD [CHEM] Stat 11/26/17 18:11 Sodium Chloride 0.9% [Normal Saline] 1,000 ml IV .BOLUS - Assessment/Plan Last 24 Hours: My Active Orders 11/26/17 16:36 DRUG SCREEN URINE BIORAD [URCHEM] Stat UA W/MICROSCOPIC [URIN] Stat 11/26/17 18:03 Gastric Occult/pH Collection D [RC] ASDIRECTED 11/26/17 18:09 INR,PT,PROTHROMBIN TIME [COAG] Stat KETONES,BLOOD [CHEM] Stat 11/26/17 18:11 Sodium Chloride 0.9% [Normal Saline] 1,000 ml IV .BOLUS
== END 2017-11-26 19:03 ==
LOC: DL.ED 16:34
DX: K92.2 Gastrointestinal hemorrhage, unspecified (principal); E11.10 Type 2 diabetes mellitus with ketoacidosis without coma; I10 Essential (primary) hypertension; F17.210 Nicotine dependence, cigarettes, uncomplicated; Z79.4 Long term (current) use of insulin; Z79.899 Other long term (current) drug therapy
CPT/HCPCS: 36415; 80053; 82009; 82150; 82271; 82962; 83690; 83735; 85025; 85610; 96361; 96374; 96375; 99285; C9113; G0480; J1815; J2354; J2405; J2765; J7030

== ENCOUNTER 2018-03-22 14:33 | Emergency (ER) | payer MEDICAID, OTHER ==
[2018-03-22 13:52] LABS: ANION GAP 11.5; CHLORIDE,CL 107 mmol/L (101-111); SODIUM,NA 142 mmol/L (135-145)
[2018-03-22 14:17] VITALS: BP 143/87
[~2018-03-22 14:33] MED LIST: 50% Dextrose in Water 50 ML Syringe IVPUSH ONE; 50% Dextrose in Water 50 ML Syringe ONE
--- NOTE | 2018-03-22 14:35 | EDM.PDOC ---
ED HPI GENERAL MEDICAL PROBLEM - General Stated Complaint: HIGH BLOOD SUGAR / AMBULANCE Time Seen by Provider: 03/22/18 13:26 Source of Information: Reports: EMS History Limitations: Reports: No Limitations - History of Present Illness INITIAL COMMENTS - FREE TEXT/NARRATIVE: This 48 yo male patient reports to the ED due to altered mentation. The patient was found in his vehicle in [facility] not responding normally. Law enforcement called the ambulance to transport the patient to the ED. The patient was awake but not responding normally. The patient's initial blood sugar was 30. Onset: Today Duration: Minutes: Location: Reports: Generalized Quality: Reports: Other Severity: Severe Improves with: Reports: None Worsens with: Reports: None - Related Data Allergies Allergy/AdvReac Type Severity Reaction Status Date / Time No Known Allergies Allergy Verified 10/27/16 12:37 Home Meds: Home Meds Insulin Aspart [NovoLOG] 7 units SQ TIDAC 10/17/14 [History] Insulin Detemir [Levemir] 35 units SQ BID 10/17/14 [History] Lisinopril [Prinivil] 5 mg PO DAILY #30 tablet 02/28/16 [Rx] Past Medical History HEENT History: Reports: None Cardiovascular History: Reports: Hypertension Respiratory History: Reports: None Gastrointestinal History: Reports: Hepatitis Genitourinary History: Reports: None Musculoskeletal History: Reports: Gout Neurological History: Reports: None Psychiatric History: Reports: Addiction Endocrine/Metabolic History: Reports: Diabetes, Type II Hematologic History: Reports: None Immunologic History: Reports: None Oncologic (Cancer) History: Reports: None Dermatologic History: Reports: None - Infectious Disease History Infectious Disease History: Reports: Chicken Pox - Past Surgical History Head Surgeries/Procedures: Reports: None HEENT Surgical History: Reports: Tonsillectomy Musculoskeletal Surgical History: Reports: Amputation, Other (See Below) Other Musculoskeletal Surgeries/Procedures:: 3 toes Social & Family History - Family History Family Medical History: Noncontributory - Tobacco Use Smoking Status *Q: Current Every Day Smoker Years of Tobacco use: 30 Packs/Tins Daily: 0.1 - Caffeine Use Caffeine Use: Reports: Coffee, Soda - Recreational Drug Use Recreational Drug Use: No ED ROS GENERAL - Review of Systems Review Of Systems: ROS reveals no pertinent complaints other than HPI. ED EXAM GENERAL NO PERIP PULSE - Physical Exam Exam: See Below Exam Limited By: No Limitations General Appearance: Obtunded, Moderate Distress, Thin Eye Exam: Bilateral Eye: EOMI, Normal Inspection, PERRL Ears: Normal External Exam, Normal Canal, Hearing Grossly Normal, Normal TMs Nose: Normal Inspection, Normal Mucosa, No Blood Throat/Mouth: Normal Inspection, Normal Lips, Normal Teeth, Normal Gums, Normal Oropharynx, Normal Voice, No Airway Compromise Head: Atraumatic, Normocephalic Neck: Normal Inspection, Supple, Non-Tender, Full Range of Motion Respiratory/Chest: No Respiratory Distress, Lungs Clear, Normal Breath Sounds, No Accessory Muscle Use, Chest Non-Tender Cardiovascular: Normal Peripheral Pulses, Regular Rate, Rhythm, No Edema, No Gallop, No JVD, No Murmur, No Rub GI/Abdominal: Normal Bowel Sounds, Soft, Non-Tender, No Organomegaly, No Distention, No Abnormal Bruit, No Mass (Male) Exam: Deferred Rectal (Males) Exam: Deferred Extremities: Normal Inspection, Normal Range of Motion, Non-Tender, Normal Capillary Refill, No Pedal Edema Neurological: Disoriented Psychiatric: Other Lymphatic: No Adenopathy Course - Vital Signs Last Recorded V/S: Last Vital Signs Temp 36.7 C 03/22/18 14:15 Pulse 80 03/22/18 14:15 Resp 16 03/22/18 14:15 BP 143/87 H 03/22/18 14:15 Pulse Ox 98 03/22/18 14:15 - Orders/Labs/Meds Orders: Active Orders 24 hr Category Date Time Status EKG Documentation Completion [RC] URGENT Care 03/22/18 13:02 Ordered DRUG SCREEN URINE BIORAD [URCHEM] Stat Lab 03/22/18 13:02 Ordered UA W/MICROSCOPIC [URIN] Stat Lab 03/22/18 13:02 Ordered Labs: Laboratory Tests 03/22/18 03/22/18 03/22/18 Range/Units 13:03 13:13 13:13 WBC (5.0-10.0) 10^3/uL RBC (4.6-6.2) 10^6/uL Hgb (14.0-18.0) g/dL Hct (40.0-54.0) % MCV (80-100) fL MCH (27.0-34.0) pg MCHC (33.0-35.0) g/dL Plt Count (150-450) 10^3/uL Neut % (Auto) (42.2-75.2) % Lymph % (Auto) (20.5-50.1) % [place] % (Auto) (2-8) % Eos % (Auto) (1.0-3.0) % Baso % (Auto) (0.0-1.0) % Sodium (135-145) mmol/L Potassium (3.6-5.0) mmol/L Chloride (101-111) mmol/L Carbon Dioxide (21.0-31.0) mmol/L Anion Gap BUN (7-18) mg/dL Creatinine (0.6-1.3) mg/dL Est Cr Clr Drug Dosing Estimated GFR (MDRD) BUN/Creatinine Ratio Glucose (74-105) mg/dL POC Glucose 33 L* (70-105) mg/dl Lactic Acid (0.5-2.2) mmol/L Calcium (8.4-10.2) mg/dl Magnesium 1.5 L (1.8-2.5) mg/dL Total Bilirubin (0.2-1.0) mg/dL AST (10-42) IU/L ALT (10-60) IU/L Alkaline Phosphatase (42-121) IU/L Ammonia 15 (11-35) umol/L Troponin I (0.00-0.02) ng/ml Total Protein (6.7-8.2) g/dl Albumin (3.2-5.5) g/dl Globulin Albumin/Globulin Ratio Ketones Negative 03/22/18 03/22/18 03/22/18 Range/Units 13:13 13:13 13:13 WBC 11.7 H (5.0-10.0) 10^3/uL RBC 4.06 L (4.6-6.2) 10^6/uL Hgb 11.3 L D (14.0-18.0) g/dL Hct 35.3 L (40.0-54.0) % MCV 86.9 D (80-100) fL MCH 27.8 (27.0-34.0) pg MCHC 32.0 L (33.0-35.0) g/dL Plt Count 448 D (150-450) 10^3/uL Neut % (Auto) 76.8 H (42.2-75.2) % Lymph % (Auto) 16.1 L (20.5-50.1) % [place] % (Auto) 4.8 (2-8) % Eos % (Auto) 2.1 (1.0-3.0) % Baso % (Auto) 0.2 (0.0-1.0) % Sodium 142 D (135-145) mmol/L Potassium 3.5 L (3.6-5.0) mmol/L Chloride 107 D (101-111) mmol/L Carbon Dioxide 27.0 (21.0-31.0) mmol/L Anion Gap 11.5 BUN 25 H (7-18) mg/dL Creatinine 1.7 H (0.6-1.3) mg/dL Est Cr Clr Drug Dosing TNP Estimated GFR (MDRD) 43 BUN/Creatinine Ratio 14.70 Glucose 28 L* (74-105) mg/dL POC Glucose (70-105) mg/dl Lactic Acid 1.3 (0.5-2.2) mmol/L Calcium 9.1 (8.4-10.2) mg/dl Magnesium (1.8-2.5) mg/dL Total Bilirubin 0.3 (0.2-1.0) mg/dL AST 54 H (10-42) IU/L ALT 44 (10-60) IU/L Alkaline Phosphatase 106 (42-121) IU/L Ammonia (11-35) umol/L Troponin I < 0.02 (0.00-0.02) ng/ml Total Protein 9.0 H (6.7-8.2) g/dl Albumin 3.5 (3.2-5.5) g/dl Globulin 5.5 Albumin/Globulin Ratio 0.64 Ketones /24/18 Range/Units 14:25 WBC (5.0-10.0) 10^3/uL RBC (4.6-6.2) 10^6/uL Hgb (14.0-18.0) g/dL Hct (40.0-54.0) % MCV (80-100) fL MCH (27.0-34.0) pg MCHC (33.0-35.0) g/dL Plt Count (150-450) 10^3/uL Neut % (Auto) (42.2-75.2) % Lymph % (Auto) (20.5-50.1) % [place] % (Auto) (2-8) % Eos % (Auto) (1.0-3.0) % Baso % (Auto) (0.0-1.0) % Sodium (135-145) mmol/L Potassium (3.6-5.0) mmol/L Chloride (101-111) mmol/L Carbon Dioxide (21.0-31.0) mmol/L Anion Gap BUN (7-18) mg/dL Creatinine (0.6-1.3) mg/dL Est Cr Clr Drug Dosing Estimated GFR (MDRD) BUN/Creatinine Ratio Glucose (74-105) mg/dL POC Glucose 190 H (70-105) mg/dl Lactic Acid (0.5-2.2) mmol/L Calcium (8.4-10.2) mg/dl Magnesium (1.8-2.5) mg/dL Total Bilirubin (0.2-1.0) mg/dL AST (10-42) IU/L ALT (10-60) IU/L Alkaline Phosphatase (42-121) IU/L Ammonia (11-35) umol/L Troponin I (0.00-0.02) ng/ml Total Protein (6.7-8.2) g/dl Albumin (3.2-5.5) g/dl Globulin Albumin/Globulin Ratio Ketones Meds: Medications Discontinued Medications Generic Name Dose Route Start Last Admin Trade Name Freq PRN Reason Stop Dose Admin Dextrose/Water 50 ml 03/22/18 13:03 03/22/18 13:43 Dextrose 50% In Water IVPUSH 03/22/18 13:04 50 ml ONETIME ONE Administration Dextrose/Water Confirm 03/22/18 13:04 03/22/18 13:43 Dextrose 50% In Water Administered 03/22/18 13:05 Not Given Dose 50 ml .ROUTE .STK-MED ONE - Re-Assessments/Exams Free Text/Narrative Re-Assessment/Exam: 03/22/18 14:43 After the patient was given an amp of D50, the patient was responding normally. The patient ate a meal and was feeling "normal". Departure - Departure Time of Disposition: 14:33 Disposition: Home, Self-Care 01 Condition: Fair Clinical Impression: Hypoglycemia - Discharge Information *PRESCRIPTION DRUG MONITORING PROGRAM REVIEWED*: Not Applicable *COPY OF PRESCRIPTION DRUG MONITORING REPORT IN PATIENT CARLITO: Not Applicable Instructions: Blood Glucose Monitoring, Adult, Hypoglycemia, [id number] Forms: ED Department Discharge Care Plan Goals: The patient was advised of the examination and lab results during the visit. The patient was encouraged to continue to monitor his blood sugars. If he has any additional symptoms or concerns, the patient should follow-up with his primary care facility or return to the emergency department. - My Orders Last 24 Hours: My Active Orders 03/22/18 13:02 EKG Documentation Completion [RC] URGENT DRUG SCREEN URINE BIORAD [URCHEM] Stat UA W/MICROSCOPIC [URIN] Stat - Assessment/Plan Last 24 Hours: My Active Orders 03/22/18 13:02 EKG Documentation Completion [RC] URGENT DRUG SCREEN URINE BIORAD [URCHEM] Stat UA W/MICROSCOPIC [URIN] Stat
--- NOTE | 2018-03-25 16:43 | EKG ---
03/22/2018 - LIN GALE YANIV JUDITH - TIME: 1:48 p.m. FINDINGS: Sinus rhythm at 83. Probable anterior infarcts. Borderline ST elevation in the inferior leads. Borderline prolonged QT interval. [facility] /[id number]
== END 2018-03-22 14:40 | disposition home or self-care (01) ==
LOC: DL.ED 14:33
DX: E11.649 Type 2 diabetes mellitus with hypoglycemia without coma (principal); I10 Essential (primary) hypertension; Z79.4 Long term (current) use of insulin; F17.210 Nicotine dependence, cigarettes, uncomplicated
CPT/HCPCS: 36415; 80053; 80305-QW; 81001; 82009; 82140; 82962; 83605; 83735; 84484; 85025; 93005; 96374; 99284; J7060

== ENCOUNTER 2019-01-02 11:10 | Emergency (ER) | payer MEDICAID ==
--- NOTE | 2019-01-02 11:50 | EDM.PDOC ---
ED HPI GENERAL MEDICAL PROBLEM - General Chief Complaint: Neurological Problem Stated Complaint: [place] Time Seen by Provider: 01/02/19 11:40 Source of Information: Reports: Patient, EMS Notes Reviewed History Limitations: Reports: No Limitations - History of Present Illness INITIAL COMMENTS - FREE TEXT/NARRATIVE: patient comes emergency department today by embolus from home with concerns of change in mentation. The ambulance was summoned this morning from the patient's family as they were concerned that he was "acting funny" with some possibly slurred speech. When EMS arrived there they checked his blood sugar which was in the mid 50s. He was given dextrose with resolution of his acting funny and slurred speech. He is brought to the emergency department to the family wants him checked out. Patient arrives and tells me that he is unsure of what day it isn't really the last thing he remembers is from Sunday. No recent falls or head injury. No headache. He takes his insulin twice a day on a set schedule as well as a sliding scale insulin but he does not check his blood sugars. 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 He does not recall any fever chills nausea vomiting. No chest pain or shortness of breath or difficulty breathing. He does not remember any oral intake. No hematuria dysuria or urinary frequency. He has noticed a decreased amount of urination. He has not been taking his blood pressure medication as he does not see any reason to because he knows he is quite chronically ill and is not long for this world. Denies being suicidal. - Related Data Allergies Allergy/AdvReac Type Severity Reaction Status Date / Time No Known Allergies Allergy Verified 01/02/19 11:30 Home Meds: Home Meds Insulin Aspart [NovoLOG] 5 units SQ TIDAC 10/17/14 [History] Insulin Detemir [Levemir] 30 units SQ BID 10/17/14 [History] Lisinopril [Prinivil] 5 mg PO DAILY #30 tablet 02/28/16 [Rx] Past Medical History HEENT History: Reports: None Cardiovascular History: Reports: Hypertension Respiratory History: Reports: None Gastrointestinal History: Reports: Hepatitis Genitourinary History: Reports: None Musculoskeletal History: Reports: Gout Neurological History: Reports: None Psychiatric History: Reports: Addiction Endocrine/Metabolic History: Reports: Diabetes, Type II, IDDM Hematologic History: Reports: None Immunologic History: Reports: None Oncologic (Cancer) History: Reports: None Dermatologic History: Reports: None - Infectious Disease History Infectious Disease History: Reports: Chicken Pox, Hepatitis C, HIV-Human Immunodeficiency Virus, MRSA - Past Surgical History Head Surgeries/Procedures: Reports: None HEENT Surgical History: Reports: Tonsillectomy Musculoskeletal Surgical History: Reports: Amputation, Other (See Below) Other Musculoskeletal Surgeries/Procedures:: toes DINESH feet Social & Family History - Family History Family Medical History: Noncontributory - Tobacco Use Smoking Status *Q: Current Every Day Smoker Years of Tobacco use: 1 Packs/Tins Daily: 0.5 Second Hand Smoke Exposure: No - Caffeine Use Caffeine Use: Reports: Coffee - Recreational Drug Use Recreational Drug Use: Yes Recreational Drug Type: Reports: Marijuana/Hashish - Living Situation & Occupation Living situation: Reports: with Family ED ROS GENERAL - Review of Systems Review Of Systems: ROS reveals no pertinent complaints other than HPI. - Physical Exam Exam: See Below Exam Limited By: No Limitations General Appearance: Alert, WD/WN, No Apparent Distress Eye Exam: Bilateral Eye: EOMI, Normal Fundi, PERRL Ears: Normal External Exam Nose: Normal Inspection Throat/Mouth: No: Normal Inspection (oral mucosa is quite dry), Normal Lips ( lips are dry and cracked) Head Exam: Atraumatic, Normocephalic Neck: Normal Inspection, Supple, Non-Tender, Full Range of Motion, Other (no JVD ) Respiratory/Chest: No Respiratory Distress, Lungs Clear, Normal Breath Sounds, No Accessory Muscle Use Cardiovascular: Normal Peripheral Pulses (bounding peripheral), Regular Rate, Rhythm, No Edema, No Murmur, No Rub. No: JVD GI/Abdominal: Normal Bowel Sounds, Soft, Non-Tender Neuro Exam (Abbreviated): Alert, Oriented, CN II-XII Intact, Normal Cognition, No Motor/Sensory Deficits Extremities: No Pedal Edema. No: Normal Inspection (left below the knee aputation without any edema well-healed without any sores. Right lower extremity in the posterior aspect of the ankle there is a rather large sore on the ankle. No erythema induration swelling ), Pedal Edema Psychiatric: Normal Affect, Normal Mood Skin Exam: Warm, Dry, Intact, Normal Color, No Rash EKG INTERPRETATION EKG Date: 01/02/19 Time: 11:53 Rhythm: NSR Rate (Beats/Min): 98 [place]: Normal P-Wave: Present QRS: Normal ST-T: Normal QT: Normal Course - Vital Signs Last Recorded V/S: Last Vital Signs Temp 35.7 C 01/02/19 12:49 Pulse 101 H 01/02/19 12:49 Resp 20 01/02/19 12:49 BP 161/124 H 01/02/19 12:49 Pulse Ox 99 01/02/19 12:49 - Orders/Labs/Meds Orders: Active Orders 24 hr Category Date Time Status EKG 12 Lead [EKG Documentation Completion] [] URGENT Care 01/02/19 11:47 Active POC Glucose [Blood Glucose Check, Bedside] [] ONETIME Care 01/02/19 12:56 Active Peripheral IV Care [] . DIRECTED Care 01/02/19 11:47 Active B-TYPE NATRIURETIC PEPTIDE,BNP [CHEM] Stat Lab 01/02/19 11:50 Received Lactated Ringers [Ringers, Lactated] 1,000 ml Med 01/02/19 12:34 Active IV .BOLUS Sodium Chloride 0.9% [Saline Flush] Med 01/02/19 11:47 Active 10 ml FLUSH ASDIRECTED PRN Peripheral IV Insertion Adult [OM.PC] Stat Oth 01/02/19 11:47 Ordered Medication Orders Lactated Ringer's (Ringers, Lactated) 1,000 mls @ 1,000 mls/hr IV .BOLUS ONE Stop: 01/02/19 13:33 Last Admin: 01/02/19 12:54 Dose: 1,000 mls/hr Sodium Chloride (Saline Flush) 10 ml FLUSH ASDIRECTED PRN PRN Reason: Keep Vein Open Last Admin: 01/02/19 12:50 Dose: 10 ml Admin: 01/02/19 12:00 Dose: 10 ml Labs: Laboratory Tests 01/02/19 01/02/19 01/02/19 Range/Units 11: 11:50 11:50 WBC 13.7 H (5.0-10.0) 10^3/uL RBC 3.95 L (4.6-6.2) 10^6/uL Hgb 10.0 L D (14.0-18.0) g/dL Hct 32.1 L (40.0-54.0) % MCV 81.3 (80-100) fL MCH 25.3 L (27.0-34.0) pg MCHC 31.2 L (33.0-35.0) g/dL Plt Count 329 (150-450) 10^3/uL Neut % (Auto) 90.0 H (42.2-75.2) % Lymph % (Auto) 6.2 L (20.5-50.1) % [place] % (Auto) 3.7 (2-8) % Eos % (Auto) 0.0 L (1.0-3.0) % Baso % (Auto) 0.1 (0.0-1.0) % Sodium 135 (135-145) mmol/L Potassium 4.5 (3.6-5.0) mmol/L Chloride 107 (101-111) mmol/L Carbon Dioxide 14.0 L (21.0-31.0) mmol/L Anion Gap 18.5 BUN 66 H D (7-18) mg/dL Creatinine 8.5 H D (0.6-1.3) mg/dL Est Cr Clr Drug Dosing 11.32 mL/min Estimated GFR (MDRD) 7 BUN/Creatinine Ratio 7.76 Glucose 142 H (74-105) mg/dL POC Glucose 225 H (70-105) mg/dl Calcium 7.5 L (8.4-10.2) mg/dl Total Bilirubin 0.7 (0.2-1.0) mg/dL AST 30 (10-42) IU/L ALT 13 (10-60) IU/L Alkaline Phosphatase 104 (42-121) IU/L Troponin I 0.03 H* (0.00-0.02) ng/ml Total Protein 8.0 (6.7-8.2) g/dl Albumin 2.5 L (3.2-5.5) g/dl Globulin 5.5 Albumin/Globulin Ratio 0.45 Meds: Medications Generic Name Dose Route Start Last Admin Trade Name Freq PRN Reason Stop Dose Admin Lactated Ringer's 1,000 mls @ 1,000 mls/hr 01/02/19 12:34 01/02/19 12:54 Ringers, Lactated IV 01/02/19 13:33 1,000 mls/hr .BOLUS ONE Administration Sodium Chloride 10 ml 06/06/19 11:47 01/02/19 12:50 Saline Flush FLUSH 10 ml ASDIRECTED PRN Administration Keep Vein Open Discontinued Medications Generic Name Dose Route Start Last Admin Trade Name Reina PRN Reason Stop Dose Admin Labetalol HCl 20 mg 01/02/19 12:37 01/02/19 12:51 Normodyne IVPUSH 01/02/19 12:38 20 mg ONETIME ONE Administration Protocol - Re-Assessments/Exams Free Text/Narrative Re-Assessment/Exam: 01/02/19 13:03 EKG is rather unremarkable. He does have a troponin 0.03 he does not have any chest pain or shortness of breath although that I think this is related to his creatinine of 8.5 and a B1 of 66. This is a quite large elevation of his creatinine and B1 from the last time he was here which was documented at about 2 for his creatinine. He is quite hypertensive in the emergency department which makes sense as he has not been taking his hypertensive medications. He was given some labetalol for his hypertension. This really looks like an acute on chronic renal failure do not see any signs of peripheral edema lungs are clear. His kidney function might also be due to his hypertension. His neuro status is unchanged. Due to his comorbid state quite elevated creatinine I called and spoke with Dr. Conde at [facility] in [place]. HPI ER course findings and concerns were relayed to him. He accepted the patient in transfer with no new orders. Departure - Departure Time of Disposition: 13:07 Disposition: DC/Tfer to [facility] 02 Clinical Impression: Hypertensive urgency, Poor compliance with medication Renal failure (ARF), acute on chronic Qualifiers: Acute renal failure type: unspecified Chronic kidney disease stage: unspecified stage Qualified Code(s): N17.9 - Acute kidney failure, unspecified; N18.9 - Chronic kidney disease, unspecified - Discharge Information Forms: ED Department Discharge - My Orders Last 24 Hours: My Active Orders 01/02/19 11:47 EKG 12 Lead [EKG Documentation Completion] [RC] URGENT Peripheral IV Care [RC] . DIRECTED Sodium Chloride 0.9% [Saline Flush] 10 ml FLUSH ASDIRECTED PRN Peripheral IV Insertion Adult [OM.PC] Stat 01/02/19 11:50 B-TYPE NATRIURETIC PEPTIDE,BNP [CHEM] Stat 01/02/19 12:34 Lactated Ringers [Ringers, Lactated] 1,000 ml IV .BOLUS 01/02/19 12:56 POC Glucose [Blood Glucose Check, Bedside] [RC] ONETIME - Assessment/Plan Last 24 Hours: My Active Orders 01/02/19 11:47 EKG 12 Lead [EKG Documentation Completion] [RC] URGENT Peripheral IV Care [RC] . DIRECTED Sodium Chloride 0.9% [Saline Flush] 10 ml FLUSH ASDIRECTED PRN Peripheral IV Insertion Adult [OM.PC] Stat 01/02/19 11:50 B-TYPE NATRIURETIC PEPTIDE,BNP [CHEM] Stat 01/02/19 12:34 Lactated Ringers [Ringers, Lactated] 1,000 ml IV .BOLUS 01/02/19 12:56 POC Glucose [Blood Glucose Check, Bedside] [] ONETIME Assessment:: Renal failure most likely acute on chronic. Hypertensive urgency DM Poor medical compliance. Plan: Transfer to [facility] Dr. Conde accepting the patient.
[2019-01-02] MEDS: Sodium Chloride 0.9% 10 ML Syringe FLUSH PRN ×2 (12:00→12:50)
[2019-01-02 12:19] LABS: ANION GAP 18.5
[2019-01-02] MEDS ORDERED: Lactated Ringers 1,000 ML IV ONE (12:34)
[2019-01-02] MEDS ORDERED: Labetalol 100 MG/20 ML MDV IVPUSH ONE (12:37)
[2019-01-02 13:35] VITALS: BP 154/99
== END 2019-01-02 14:03 ==
LOC: DL.ED 11:10
DX: I16.0 Hypertensive urgency (principal); N17.9 Acute kidney failure, unspecified; I12.9 Hypertensive chronic kidney disease with stage 1 through stage 4 chronic kidney disease, or unspecified chronic kidney disease; E11.22 Type 2 diabetes mellitus with diabetic chronic kidney disease; N18.9 Chronic kidney disease, unspecified; F17.210 Nicotine dependence, cigarettes, uncomplicated; Z91.14 Patient's other noncompliance with medication regimen; Z79.4 Long term (current) use of insulin; Z79.899 Other long term (current) drug therapy
CPT/HCPCS: 36415; 80053; 82962; 83880; 84484; 85025; 93005; 96361; 96374; 99285; J3490; J7120

== ENCOUNTER 2019-01-13 15:59 | Emergency (ER) | payer MEDICAID ==
[2019-01-13 15:42] VITALS: BP 161/102
[~2019-01-13 15:59] MED LIST changes: -50% Dextrose in Water 50 ML Syringe ONE; +Glucagon,Human Recombinant 1 MG Vial IM ONE; +Sodium Chloride 0.9% 1,000 ML IV ONE
--- NOTE | 2019-01-13 16:03 | EDM.PDOC ---
ED HPI GENERAL MEDICAL PROBLEM - General Stated Complaint: AMBULANCE Time Seen by Provider: 01/13/19 15:35 Source of Information: Reports: Patient History Limitations: Reports: No Limitations - History of Present Illness INITIAL COMMENTS - FREE TEXT/NARRATIVE: This 48 yo male patient was brought to the ED by [facility] due to a low blood sugar. The patient apparently spit the oral glucose on EMS during the visit. Upon arrival, the patient was having difficulties responding verbally. The patient's blood sugar was 42 upon arrival in the ED. Onset: Today Duration: Constant Location: Reports: Generalized Quality: Reports: Other Severity: Moderate Improves with: Reports: None Worsens with: Reports: None Context: Reports: Other Associated Symptoms: Reports: Other - Related Data Allergies Allergy/AdvReac Type Severity Reaction Status Date / Time No Known Allergies Allergy Verified 01/13/19 16:05 Home Meds: Home Meds Insulin Aspart [NovoLOG] 5 units SQ TIDAC 10/17/14 [History] Insulin Detemir [Levemir] 30 units SQ BID 10/17/14 [History] Lisinopril [Prinivil] 5 mg PO DAILY #30 tablet 02/28/16 [Rx] Past Medical History HEENT History: Reports: None Cardiovascular History: Reports: Hypertension Respiratory History: Reports: None Gastrointestinal History: Reports: Hepatitis Genitourinary History: Reports: None Musculoskeletal History: Reports: Gout Neurological History: Reports: None Psychiatric History: Reports: Addiction Endocrine/Metabolic History: Reports: Diabetes, Type II, IDDM Hematologic History: Reports: None Immunologic History: Reports: None Oncologic (Cancer) History: Reports: None Dermatologic History: Reports: None - Infectious Disease History Infectious Disease History: Reports: Chicken Pox, Hepatitis C, HIV-Human Immunodeficiency Virus, MRSA - Past Surgical History Head Surgeries/Procedures: Reports: None HEENT Surgical History: Reports: Tonsillectomy Musculoskeletal Surgical History: Reports: Amputation, Other (See Below) Other Musculoskeletal Surgeries/Procedures:: toes DINESH feet Social & Family History - Family History Family Medical History: Noncontributory - Caffeine Use Caffeine Use: Reports: Coffee - Living Situation & Occupation Living situation: Reports: with Family ED ROS GENERAL - Review of Systems Review Of Systems: ROS reveals no pertinent complaints other than HPI. ED EXAM GENERAL NO PERIP PULSE - Physical Exam Exam: See Below Exam Limited By: No Limitations General Appearance: Alert, Moderate Distress Eye Exam: Bilateral Eye: EOMI, Normal Inspection, PERRL Ears: Normal External Exam, Normal Canal, Hearing Grossly Normal, Normal TMs Nose: Normal Inspection, Normal Mucosa, No Blood Throat/Mouth: Normal Inspection, Normal Lips, Normal Teeth, Normal Gums, Normal Oropharynx, Normal Voice, No Airway Compromise Head: Atraumatic, Normocephalic Neck: Normal Inspection, Supple, Non-Tender, Full Range of Motion Respiratory/Chest: No Respiratory Distress, Lungs Clear, Normal Breath Sounds, No Accessory Muscle Use, Chest Non-Tender Cardiovascular: Normal Peripheral Pulses, Regular Rate, Rhythm, No Edema, No Gallop, No JVD, No Murmur, No Rub GI/Abdominal: Normal Bowel Sounds, Soft, Non-Tender, No Organomegaly, No Distention, No Abnormal Bruit, No Mass (Male) Exam: Deferred Rectal (Males) Exam: Deferred Back Exam: Normal Inspection, Full Range of Motion, NT Extremities: Other (left lower extremity BKN amputation) Neurological: Confused, Disoriented Psychiatric: Normal Affect, Normal Mood Skin Exam: Warm, Dry, Intact, Normal Color, No Rash Lymphatic: No Adenopathy Course - Vital Signs Last Recorded V/S: Last Vital Signs Temp 35.8 C 01/13/19 15:32 Pulse 92 01/13/19 15:41 Resp 16 01/13/19 15:32 BP 161/102 H 01/13/19 15:41 Pulse Ox 91 L 01/13/19 15:32 - Orders/Labs/Meds Orders: Active Orders 24 hr Category Date Time Status Blood Glucose Check, Bedside [RC] ONETIME Care 01/13/19 15:20 Active Blood Glucose Check, Bedside [RC] ONETIME Care 01/13/19 15:58 Active Late Tray [DIET] Routine Diet 01/13/19 16:00 Active Labs: Laboratory Tests 01/13/19 01/13/19 01/13/19 Range/Units 15:23 15:35 15:55 WBC 9.8 (5.0-10.0) 10^3/uL RBC 3.51 L (4.6-6.2) 10^6/uL Hgb 9.0 L (14.0-18.0) g/dL Hct 31.4 L (40.0-54.0) % MCV 89.5 D (80-100) fL MCH 25.6 L (27.0-34.0) pg MCHC 28.7 L (33.0-35.0) g/dL Plt Count 378 (150-450) 10^3/uL Neut % (Auto) 80.7 H (42.2-75.2) % Lymph % (Auto) 12.8 L (20.5-50.1) % [place] % (Auto) 4.0 (2-8) % Eos % (Auto) 2.3 (1.0-3.0) % Baso % (Auto) 0.2 (0.0-1.0) % POC Glucose 42 L* 107 H (70-105) mg/dl Meds: Medications Discontinued Medications Generic Name Dose Route Start Last Admin Trade Name Freq PRN Reason Stop Dose Admin Dextrose/Water 50 ml 01/13/19 15:21 01/13/19 16:01 Dextrose 50% In Water IVPUSH 01/13/19 15:22 Not Given ONETIME ONE Glucagon 1 mg 01/13/19 15:30 01/13/19 15:30 Glucagen IM 01/13/19 15:31 1 mg ONETIME ONE Administration Sodium Chloride 1,000 mls @ 250 mls/hr 01/13/19 15:21 01/13/19 16:01 Normal Saline IV 01/13/19 19:20 Not Given .BOLUS ONE - Re-Assessments/Exams Free Text/Narrative Re-Assessment/Exam: 01/13/19 16:08 After the glucagon was administered, the patient started to respond normally. The patient reports he is feeling better at this time. The patient reports he has been having difficulties with his blood sugar dropping low. The patient reports he was supposed to be seen by his primary care provider, but he missed his appointment due to the low blood sugar level. Departure - Departure Time of Disposition: 15:59 Disposition: Home, Self-Care 01 Condition: Fair Clinical Impression: Hypoglycemia - Discharge Information *PRESCRIPTION DRUG MONITORING PROGRAM REVIEWED*: Not Applicable *COPY OF PRESCRIPTION DRUG MONITORING REPORT IN PATIENT CARLITO: Not Applicable Instructions: Hypoglycemia, [id number] Referrals: PCP,None [Primary Care Provider] - Forms: ED Department Discharge Care Plan Goals: The patient was advised of the examination, lab and treatments while in the ED. The patient was given IM Glucagon while in the ED. The patient was advised to talk to his primary care provider about adjusting his Levemir. The patient was encouraged to eat a balanced meal. If the patient has any additional symptoms or concerns, the patient should either return to the emergency department or visit his primary care facility. - My Orders Last 24 Hours: My Active Orders 01/13/19 15:20 Blood Glucose Check, Bedside [RC] ONETIME 01/13/19 15:58 Blood Glucose Check, Bedside [RC] ONETIME 01/13/19 16:00 Late Tray [DIET] Routine - Assessment/Plan Last 24 Hours: My Active Orders 01/13/19 15:20 Blood Glucose Check, Bedside [RC] ONETIME 01/13/19 15:58 Blood Glucose Check, Bedside [RC] ONETIME 01/13/19 16:00 Late Tray [DIET] Routine
== END 2019-01-13 16:20 | disposition home or self-care (01) ==
LOC: DL.ED 15:59
DX: E11.649 Type 2 diabetes mellitus with hypoglycemia without coma (principal); I10 Essential (primary) hypertension; Z79.4 Long term (current) use of insulin; Z79.899 Other long term (current) drug therapy
CPT/HCPCS: 36415; 82962; 85025; 96372; 99284; J1610

== ENCOUNTER 2019-05-01 18:19 | Emergency (ER) | payer MEDICAID ==
--- NOTE | 2019-05-01 19:30 | EDM.PDOC ---
ED HPI GENERAL MEDICAL PROBLEM - General Chief Complaint: General Stated Complaint: CHILLS, DIABETIC Time Seen by Provider: 05/01/19 19:20 Source of Information: Reports: Patient History Limitations: Reports: No Limitations - History of Present Illness INITIAL COMMENTS - FREE TEXT/NARRATIVE: This 49 yo male patient report to the ED due to generalized body aches. The patient reports he has not been taking his insulin or blood pressure medications due to not being able to find his medications. The patient reports he did go to dialysis today in [place] and was advised to go to the ED. The patient decided to come to the ED here in [place]. The patient reports he [facility] , but has not done so. The patient reports he feels like his left lower extremity may have an infection where he had a below the knee amputation. Duration: Day(s):, Constant, Getting Worse Location: Reports: Generalized Quality: Reports: Pressure Severity: Moderate Improves with: Reports: None Worsens with: Reports: None Context: Reports: Other Associated Symptoms: Reports: No Other Symptoms Generalized Pain Score (Numeric/FACES): 7 - Related Data Allergies Allergy/AdvReac Type Severity Reaction Status Date / Time No Known Allergies Allergy Verified 05/01/19 18:27 Home Meds: Home Meds Insulin Aspart [NovoLOG] 5 units SQ TIDAC 10/17/14 [History] Insulin Detemir [Levemir] 15 units SQ BID 10/17/14 [History] Lisinopril [Prinivil] 5 mg PO DAILY #30 tablet 02/28/16 [Rx] Past Medical History HEENT History: Reports: None Cardiovascular History: Reports: Hypertension Respiratory History: Reports: None Gastrointestinal History: Reports: Hepatitis Genitourinary History: Reports: None Musculoskeletal History: Reports: Gout Neurological History: Reports: None Psychiatric History: Reports: Addiction Endocrine/Metabolic History: Reports: Diabetes, Type II, IDDM Hematologic History: Reports: None Immunologic History: Reports: None Oncologic (Cancer) History: Reports: None Dermatologic History: Reports: None - Infectious Disease History Infectious Disease History: Reports: Chicken Pox, Hepatitis C, HIV-Human Immunodeficiency Virus, MRSA - Past Surgical History Head Surgeries/Procedures: Reports: None HEENT Surgical History: Reports: Tonsillectomy Musculoskeletal Surgical History: Reports: Amputation, Other (See Below) Other Musculoskeletal Surgeries/Procedures:: toes DINESH feet Social & Family History - Family History Family Medical History: Noncontributory - Tobacco Use Smoking Status *Q: Current Every Day Smoker Years of Tobacco use: 37 Packs/Tins Daily: 0.1 - Caffeine Use Caffeine Use: Reports: Coffee, Tea - Recreational Drug Use Recreational Drug Use: No - Living Situation & Occupation Living situation: Reports: with Family ED ROS GENERAL - Review of Systems Review Of Systems: ROS reveals no pertinent complaints other than HPI. ED EXAM, GENERAL - Physical Exam Exam: See Below Exam Limited By: No Limitations General Appearance: Alert, WD/WN, Moderate Distress Eye Exam: Bilateral Eye: EOMI, Normal Inspection, PERRL Ears: Normal External Exam, Normal Canal, Hearing Grossly Normal, Normal TMs Nose: Normal Inspection, Normal Mucosa, No Blood Throat/Mouth: Normal Inspection, Normal Lips, Normal Teeth, Normal Gums, Normal Oropharynx, Normal Voice, No Airway Compromise Head: Atraumatic, Normocephalic Neck: Normal Inspection, Supple, Non-Tender, Full Range of Motion Respiratory/Chest: No Respiratory Distress, Lungs Clear, Normal Breath Sounds, No Accessory Muscle Use, Chest Non-Tender Cardiovascular: Normal Peripheral Pulses, Regular Rate, Rhythm, No Edema, No Gallop, No JVD, No Murmur, No Rub GI/Abdominal: Normal Bowel Sounds, Soft, Non-Tender, No Organomegaly, No Distention, No Abnormal Bruit, No Mass (Male) Exam: Deferred Rectal (Males) Exam: Deferred Back Exam: Normal Inspection, Full Range of Motion, NT Extremities: Other (below the knee amputation to the left lower e) Neurological: Alert, Oriented, CN II-XII Intact, Normal Cognition, Normal Gait, Normal Reflexes, No Motor/Sensory Deficits Psychiatric: Normal Affect, Normal Mood Skin Exam: Warm, Dry, Intact, Normal Color, No Rash Lymphatic: No Adenopathy Course - Vital Signs Last Recorded V/S: Last Vital Signs Temp 37.4 C 05/01/19 18:28 Pulse 119 H 05/01/19 18:28 Resp 16 05/01/19 18:28 BP 152/96 H 05/01/19 18:28 Pulse Ox 93 L 05/01/19 18:28 - Orders/Labs/Meds Orders: Active Orders 24 hr Category Date Time Status Blood Glucose Check, Bedside [RC] ONETIME Care 05/01/19 18:35 Active CULTURE BLOOD [BC] Stat Lab 05/01/19 19:05 Results DRUG SCREEN URINE BIORAD [URCHEM] Stat Lab 05/01/19 19:19 Ordered UA RFX LESTER AND CULT IF INDIC [URIN] Urgent Lab 05/01/19 19:19 Ordered Labs: Laboratory Tests 05/01/19 05/01/19 05/01/19 Range/Units 19:05 19:05 19:05 WBC 14.7 H (5.0-10.0) 10^3/uL RBC 3.47 L (4.6-6.2) 10^6/uL Hgb 9.6 L (14.0-18.0) g/dL Hct 30.4 L (40.0-54.0) % MCV 87.6 (80-100) fL MCH 27.7 (27.0-34.0) pg MCHC 31.6 L (33.0-35.0) g/dL Plt Count 312 (150-450) 10^3/uL Neut % (Auto) 86.9 H (42.2-75.2) % Lymph % (Auto) 6.0 L (20.5-50.1) % [place] % (Auto) 6.4 (2-8) % Eos % (Auto) 0.6 L (1.0-3.0) % Baso % (Auto) 0.1 (0.0-1.0) % Sodium 131 L (135-145) mmol/L Potassium 3.6 (3.6-5.0) mmol/L Chloride 95 L D (101-111) mmol/L Carbon Dioxide 29.0 D (21.0-31.0) mmol/L Anion Gap 10.6 BUN 21 H D (7-18) mg/dL Creatinine 3.6 H D (0.6-1.3) mg/dL Est Cr Clr Drug Dosing 25.64 mL/min Estimated GFR (MDRD) 18 BUN/Creatinine Ratio 5.83 Glucose 303 H (74-105) mg/dL Lactic Acid 1.2 (0.5-2.2) mmol/L Calcium 7.3 L (8.4-10.2) mg/dl Total Bilirubin 0.6 (0.2-1.0) mg/dL AST 22 (10-42) IU/L ALT 13 (10-60) IU/L Alkaline Phosphatase 64 (42-121) IU/L Total Protein 7.2 (6.7-8.2) g/dl Albumin 2.1 L (3.2-5.5) g/dl Globulin 5.1 Albumin/Globulin Ratio 0.41 Ketones Negative Meds: Medications Discontinued Medications Generic Name Dose Route Start Last Admin Trade Name Freq PRN Reason Stop Dose Admin Doxycycline Hyclate 100 mg 05/01/19 20:39 Vibramycin PO 05/01/19 20:40 ONETIME ONE Departure - Departure Time of Disposition: 20:44 Disposition: Home, Self-Care 01 Condition: Fair Clinical Impression: Cellulitis of left lower extremity - Discharge Information *PRESCRIPTION DRUG MONITORING PROGRAM REVIEWED*: Not Applicable *COPY OF PRESCRIPTION DRUG MONITORING REPORT IN PATIENT CARLITO: Not Applicable Instructions: Cellulitis, Adult, [id number] Forms: ED Department Discharge Care Plan Goals: The patient was advised of the examination and lab results during the visit. The patient was given an oral dose of Doxycycline while in the ED and discharged with a script for Doxycycline (100 mg) #20 to take 1 by mouth 2 times per day for 10 days. The patient was advised to fill and take his medications as directed. If the patient has any additional symptoms or concerns , the patient should either return to the emergency department or visit his primary care facility. - My Orders Last 24 Hours: My Active Orders 05/01/19 19:05 CULTURE BLOOD [BC] Stat 05/01/19 19:19 DRUG SCREEN URINE BIORAD [URCHEM] Stat UA RFX LESTER AND CULT IF INDIC [URIN] Urgent - Assessment/Plan Last 24 Hours: My Active Orders 05/01/19 19:05 CULTURE BLOOD [BC] Stat 05/01/19 19:19 DRUG SCREEN URINE BIORAD [URCHEM] Stat UA RFX LESTER AND CULT IF INDIC [URIN] Urgent
[2019-05-01 19:42] LABS: ANION GAP 10.6; CHLORIDE,CL 95 mmol/L (101-111); SODIUM,NA 131 mmol/L (135-145)
[2019-05-01] MEDS ORDERED: Doxycycline 100 MG Cap PO ONE (20:39)
[2019-05-01 21:11] VITALS: BP 127/74; PULSE 97
== END 2019-05-01 21:13 | disposition home or self-care (01) ==
LOC: DL.ED 18:19
DX: L03.116 Cellulitis of left lower limb (principal); E11.9 Type 2 diabetes mellitus without complications; F17.210 Nicotine dependence, cigarettes, uncomplicated; I10 Essential (primary) hypertension; Z79.4 Long term (current) use of insulin; Z98.890 Other specified postprocedural states; Z79.899 Other long term (current) drug therapy
CPT/HCPCS: 36415; 80053; 80305; 81001; 82009; 82962; 83605; 85025; 87040; 87077; 87186; 99283; A9270

== ENCOUNTER 2019-05-15 10:30 | Emergency (ER) | payer MEDICAID ==
[2019-05-15] MEDS ORDERED: Sodium Chloride 0.9% 10 ML Syringe FLUSH PRN (10:55)
--- NOTE | 2019-05-15 10:58 | EDM.PDOC ---
ED HPI GENERAL MEDICAL PROBLEM - General Chief Complaint: General Stated Complaint: AMBULANCE Time Seen by Provider: 05/15/19 10:35 Source of Information: Reports: Patient, EMS - History of Present Illness INITIAL COMMENTS - FREE TEXT/NARRATIVE: patient comes emergency department today by ambulance with concerns generalized pain and missing his dialysis. the history taking for this patient is somewhat limited as he is uncooperative and refuses to answer the nurses or even my questions at times. He reports that he is homeless and he has missed about 6-7 of his dialysis runs. Over the past few days he has become very weak and he has generalized body aches. No fever no chills. No cough or congestion. Does complain of some shortness. No pain in his chest. No nausea no vomiting. No diarrhea. No palpitations or syncope. - Related Data Allergies Allergy/AdvReac Type Severity Reaction Status Date / Time No Known Allergies Allergy Verified 05/15/19 10:31 Home Meds: Home Meds Insulin Aspart [NovoLOG] 5 units SQ TIDAC 10/17/14 [History] Insulin Detemir [Levemir] 15 units SQ BID 10/17/14 [History] Lisinopril [Prinivil] 5 mg PO DAILY #30 tablet 02/28/16 [Rx] Past Medical History HEENT History: Reports: None Cardiovascular History: Reports: Hypertension Respiratory History: Reports: None Gastrointestinal History: Reports: Hepatitis Genitourinary History: Reports: None Musculoskeletal History: Reports: Gout Neurological History: Reports: None Psychiatric History: Reports: Addiction Endocrine/Metabolic History: Reports: Diabetes, Type II, IDDM Hematologic History: Reports: None Immunologic History: Reports: None Oncologic (Cancer) History: Reports: None Dermatologic History: Reports: None - Infectious Disease History Infectious Disease History: Reports: Chicken Pox, Hepatitis C, HIV-Human Immunodeficiency Virus, MRSA - Past Surgical History Head Surgeries/Procedures: Reports: None HEENT Surgical History: Reports: Tonsillectomy Musculoskeletal Surgical History: Reports: Amputation, Other (See Below) Other Musculoskeletal Surgeries/Procedures:: toes DINESH feet Social & Family History - Family History Family Medical History: Noncontributory - Caffeine Use Caffeine Use: Reports: Coffee, Tea - Living Situation & Occupation Living situation: Reports: with Family ED ROS GENERAL - Review of Systems Review Of Systems: ROS reveals no pertinent complaints other than HPI. ED EXAM, GENERAL - Physical Exam Exam: See Below General Appearance: Alert, Mild Distress Nose: Normal Inspection Throat/Mouth: Normal Inspection Head: Atraumatic, Normocephalic Neck: Normal Inspection, Supple Respiratory/Chest: Chest Non-Tender, Decreased Breath Sounds (throughout), Rales (bilaterally) Cardiovascular: Normal Peripheral Pulses, Regular Rate, Rhythm GI/Abdominal: Normal Bowel Sounds, Soft Extremities: Normal Inspection (except for amputation of the left lower extremity. Also the right dorsum of the hand is hot to touch erythematous swollen and pain from the fingers proximally to about 5 inches from the wrist. There is an old scab just proximal to the cellulitic line without drainage or abscess. ) Neurological: Alert, Oriented, No Motor/Sensory Deficits Skin Exam: Warm, Intact, Normal Color, Diaphoretic EKG INTERPRETATION EKG Date: 05/15/19 Time: 11:07 Rhythm: Other (sinus tach) Rate (Beats/Min): 127 [place]: Normal P-Wave: Present QRS: Normal ST-T: Normal QT: Normal Comparison: No Change Course - Orders/Labs/Meds Orders: Active Orders 24 hr Category Date Time Status EKG 12 Lead [EKG Documentation Completion] [RC] URGENT Care 05/15/19 10:54 Active Peripheral IV Care [RC] . DIRECTED Care 05/15/19 10:55 Active CULTURE BLOOD [BC] Stat Lab 05/15/19 11:06 Received CULTURE BLOOD [BC] Stat Lab 05/15/19 12:44 Received Blood Culture x2 Reflex Set [OM.PC] Stat Oth 05/15/19 12:36 Ordered Peripheral IV Insertion Adult [OM.PC] Stat Oth 05/15/19 10:54 Ordered Labs: Laboratory Tests 05/15/19 05/15/19 05/15/19 Range/Units 11:06 11:06 11:06 WBC 17.1 H (5.0-10.0) 10^3/uL RBC 3.41 L (4.6-6.2) 10^6/uL Hgb 9.5 L (14.0-18.0) g/dL Hct 29.4 L (40.0-54.0) % MCV 86.2 (80-100) fL MCH 27.9 (27.0-34.0) pg MCHC 32.3 L (33.0-35.0) g/dL Plt Count 375 (150-450) 10^3/uL Neut % (Auto) 90.4 H (42.2-75.2) % Lymph % (Auto) 4.7 L (20.5-50.1) % [place] % (Auto) 4.5 (2-8) % Eos % (Auto) 0.3 L (1.0-3.0) % Baso % (Auto) 0.1 (0.0-1.0) % Sodium 123 L (135-145) mmol/L Potassium 4.3 (3.6-5.0) mmol/L Chloride 93 L (101-111) mmol/L Carbon Dioxide 21.0 (21.0-31.0) mmol/L Anion Gap 13.3 BUN 82 H D (7-18) mg/dL Creatinine 8.5 H D (0.6-1.3) mg/dL Est Cr Clr Drug Dosing TNP Estimated GFR (MDRD) 7 BUN/Creatinine Ratio 9.64 Glucose 441 H* (74-105) mg/dL Lactic Acid 1.7 (0.5-2.2) mmol/L Calcium 7.4 L (8.4-10.2) mg/dl Total Bilirubin 0.7 (0.2-1.0) mg/dL AST 21 (10-42) IU/L ALT 11 (10-60) IU/L Alkaline Phosphatase 65 (42-121) IU/L Troponin I 0.06 H* (0.00-0.02) ng/ml C-Reactive Protein (0.0-1.3) mg/dL B-Natriuretic Peptide 2540 H (0-100) pg/ml Total Protein 7.5 (6.7-8.2) g/dl Albumin 1.9 L (3.2-5.5) g/dl Globulin 5.6 Albumin/Globulin Ratio 0.34 //19 Range/Units 11:06 WBC (5.0-10.0) 10^3/uL RBC (4.6-6.2) 10^6/uL Hgb (14.0-18.0) g/dL Hct (40.0-54.0) % MCV (80-100) fL MCH (27.0-34.0) pg MCHC (33.0-35.0) g/dL Plt Count (150-450) 10^3/uL Neut % (Auto) (42.2-75.2) % Lymph % (Auto) (20.5-50.1) % [place] % (Auto) (2-8) % Eos % (Auto) (1.0-3.0) % Baso % (Auto) (0.0-1.0) % Sodium (135-145) mmol/L Potassium (3.6-5.0) mmol/L Chloride (101-111) mmol/L Carbon Dioxide (21.0-31.0) mmol/L Anion Gap BUN (7-18) mg/dL Creatinine (0.6-1.3) mg/dL Est Cr Clr Drug Dosing Estimated GFR (MDRD) BUN/Creatinine Ratio Glucose (74-105) mg/dL Lactic Acid (0.5-2.2) mmol/L Calcium (8.4-10.2) mg/dl Total Bilirubin (0.2-1.0) mg/dL AST (10-42) IU/L ALT (10-60) IU/L Alkaline Phosphatase (42-121) IU/L Troponin I (0.00-0.02) ng/ml C-Reactive Protein 11.1 H (0.0-1.3) mg/dL B-Natriuretic Peptide (0-100) pg/ml Total Protein (6.7-8.2) g/dl Albumin (3.2-5.5) g/dl Globulin Albumin/Globulin Ratio Meds: Medications Discontinued Medications Generic Name Dose Route Start Last Admin Trade Name Freq PRN Reason Stop Dose Admin Vancomycin HCl 1 gm/ Sodium 250 mls @ 167 mls/hr 05/15/19 12:36 05/15/19 12: 54 Chloride IV 05/15/19 14:05 167 mls/hr ONETIME ONE Administration Sodium Chloride 10 ml 05/15/19 10:55 05/15/19 12:54 Saline Flush FLUSH 10 ml ASDIRECTED PRN Administration Keep Vein Open - Re-Assessments/Exams Free Text/Narrative Re-Assessment/Exam: 05/15/19 13:[address] Rodriguez at [facility]. HPI ER COURSE findings and concerns of CRF none compliant with dialysis and acute cellulitis of the left hand. He agrees with the vanco. He accepted the patient in transfer at this time by ground ambulance to [facility] in [place]. I discussed the plan of care with the patient. The concerns of the infection and his none compliance with dialysis. He is comfortable with the plan and his questions answered. Departure - Departure Time of Disposition: 12:30 Disposition: DC/Tfer to [facility] 02 Clinical Impression: Cellulitis of hand CRF (chronic renal failure) Qualifiers: Chronic kidney disease stage: unspecified stage Qualified Code(s): N18.9 - Chronic kidney disease, unspecified Fluid overload Qualifiers: Hypervolemia type: unspecified Qualified Code(s): E87.70 - Fluid overload, unspecified - Discharge Information Referrals: PCP,Unobtain [Primary Care Provider] - Forms: ED Department Discharge - My Orders Last 24 Hours: My Active Orders 05/15/19 10:54 EKG 12 Lead [EKG Documentation Completion] [RC] URGENT Peripheral IV Insertion Adult [OM.PC] Stat 05/15/19 10:55 Peripheral IV Care [RC] . DIRECTED 05/15/19 11:06 CULTURE BLOOD [BC] Stat 05/15/19 12:36 Blood Culture x2 Reflex Set [OM.PC] Stat 05/15/19 12:44 CULTURE BLOOD [BC] Stat - Assessment/Plan Last 24 Hours: My Active Orders 05/15/19 10:54 EKG 12 Lead [EKG Documentation Completion] [RC] URGENT Peripheral IV Insertion Adult [OM.PC] Stat 05/15/19 10:55 Peripheral IV Care [RC] . DIRECTED 05/15/19 11:06 CULTURE BLOOD [BC] Stat 05/15/19 12:36 Blood Culture x2 Reflex Set [OM.PC] Stat 05/15/19 12:44 CULTURE BLOOD [BC] Stat Assessment:: CRF missed dialysis requiring emergent dialysis Left hand cellulitis Plan: Blood cultures pending. [facility].
[2019-05-15 11:39] LABS: ANION GAP 13.3; CHLORIDE,CL 93 mmol/L (101-111); SODIUM,NA 123 mmol/L (135-145)
== END 2019-05-15 12:40 ==
LOC: DL.ED 10:30
DX: L03.113 Cellulitis of right upper limb (principal); E87.70 Fluid overload, unspecified; E11.22 Type 2 diabetes mellitus with diabetic chronic kidney disease; I12.9 Hypertensive chronic kidney disease with stage 1 through stage 4 chronic kidney disease, or unspecified chronic kidney disease; N18.9 Chronic kidney disease, unspecified; Z79.4 Long term (current) use of insulin; Z79.899 Other long term (current) drug therapy; Z99.2 Dependence on renal dialysis; Z89.612 Acquired absence of left leg above knee
CPT/HCPCS: 36415; 71045; 80053; 83605; 83880; 84484; 85025; 86140; 87040; 87077; 87186; 93005; 96374; 99285; J3370; J7050

== ENCOUNTER 2019-07-07 21:37 | Emergency (ER) | payer MEDICAID, MEDICARE ==
[~2019-07-07 21:37] MED LIST changes: -Glucagon,Human Recombinant 1 MG Vial IM ONE; -Sodium Chloride 0.9% 1,000 ML IV ONE
[2019-07-07 21:39] VITALS: BP 127/96; PULSE 111
[2019-07-07 22:42] LABS: CHLORIDE,CL 101 mmol/L (101-111); SODIUM,NA 138 mmol/L (135-145)
--- NOTE | 2019-07-07 23:23 | EDM.PDOC ---
ED HPI GENERAL MEDICAL PROBLEM - General Chief Complaint: Diabetic Complaint Stated Complaint: AMBULANCE Time Seen by Provider: 07/07/19 21:40 Source of Information: Reports: EMS History Limitations: Reports: Altered Mental Status, Uncooperative - History of Present Illness INITIAL COMMENTS - FREE TEXT/NARRATIVE: ED via [facility] with low blood sugar, itial 33 on scene. No reports of injury. Recent heart valve repair in past 2 months. IDDM. Dialysis, unknown last Immunocompromised. Hx of noncompliance with medications. No regular address. Glucagon given by EMS. Patient alert on arrival, swearing uncooperative with staff. - Related Data Allergies Allergy/AdvReac Type Severity Reaction Status Date / Time No Known Allergies Allergy Verified 05/15/19 10:31 Home Meds: Home Meds Insulin Aspart [NovoLOG] 5 units SQ TIDAC 10/17/14 [History] Insulin Detemir [Levemir] 15 units SQ BID 10/17/14 [History] Past Medical History HEENT History: Reports: None Cardiovascular History: Reports: Heart Valve Replacement, Hypertension Respiratory History: Reports: None Gastrointestinal History: Reports: Hepatitis Genitourinary History: Reports: Chronic Renal Insuffiency, Dialysis Musculoskeletal History: Reports: Amputation, Gout Neurological History: Reports: None Psychiatric History: Reports: Addiction Endocrine/Metabolic History: Reports: Diabetes, Type II, IDDM Hematologic History: Reports: None Immunologic History: Reports: HIV Oncologic (Cancer) History: Reports: None Dermatologic History: Reports: None - Infectious Disease History Infectious Disease History: Reports: Chicken Pox, Hepatitis C, HIV-Human Immunodeficiency Virus, MRSA - Past Surgical History Head Surgeries/Procedures: Reports: None HEENT Surgical History: Reports: Tonsillectomy Musculoskeletal Surgical History: Reports: Amputation, Other (See Below) Other Musculoskeletal Surgeries/Procedures:: toes DINESH feet Social & Family History - Family History Family Medical History: Noncontributory - Caffeine Use Caffeine Use: Reports: Coffee, Tea - Living Situation & Occupation Living situation: Reports: with Family Occupation: Disabled ED ROS GENERAL - Review of Systems Review Of Systems: Comprehensive ROS is negative, except as noted in HPI. ED EXAM GENERAL NO PERIP PULSE - Physical Exam Exam: See Below Exam Limited By: No Limitations General Appearance: Mild Distress Eye Exam: Bilateral Eye: EOMI Ears: Normal External Exam Nose: Normal Inspection Throat/Mouth: Normal Inspection Head: Atraumatic, Normocephalic Neck: Normal Inspection Respiratory/Chest: No Respiratory Distress, Lungs Clear Cardiovascular: Normal Peripheral Pulses GI/Abdominal: Normal Bowel Sounds, Other (incontinenet stool) Extremities: Other (left AKA, multiple superficial bulla to right lower extremeties) Neurological: Inattentive Psychiatric: Other (easily agitated ) Skin Exam: Warm, Dry, Wound/Incision (multiple scatterd bulla right lower extremity , healing chest incision and drain sites ) Course - Vital Signs Last Recorded V/S: Last Vital Signs Temp 96.7 F 07/07/19 21:38 Pulse 111 H 07/07/19 21:38 Resp 16 07/07/19 21:38 BP 127/96 H 07/07/19 21:38 Pulse Ox 99 07/07/19 21:38 - Orders/Labs/Meds Labs: Laboratory Tests 07/07/19 07/07/19 07/07/19 Range/Units 21:46 21:46 21:46 WBC 6.5 (5.0-10.0) 10^3/uL RBC 3.75 L (4.6-6.2) 10^6/uL Hgb 11.3 L D (14.0-18.0) g/dL Hct 36.3 L (40.0-54.0) % MCV 96.8 (80-100) fL MCH 30.1 (27.0-34.0) pg MCHC 31.1 L (33.0-35.0) g/dL Plt Count 135 L D (150-450) 10^3/uL Neut % (Auto) 71.6 (42.2-75.2) % Lymph % (Auto) 16.7 L (20.5-50.1) % [place] % (Auto) 9.2 H (2-8) % Eos % (Auto) 2.2 (1.0-3.0) % Baso % (Auto) 0.3 (0.0-1.0) % Sodium 138 (135-145) mmol/L Potassium 4.0 (3.6-5.0) mmol/L Chloride 101 (101-111) mmol/L Carbon Dioxide 23.0 (21.0-31.0) mmol/L Anion Gap 18.0 BUN 51 H D (7-18) mg/dL Creatinine 8.2 H D (0.6-1.3) mg/dL Est Cr Clr Drug Dosing TNP Estimated GFR (MDRD) 7 BUN/Creatinine Ratio 6.21 Glucose 45 L* (74-105) mg/dL POC Glucose (70-105) mg/dl Lactic Acid 1.6 (0.5-2.2) mmol/L Calcium 8.0 L (8.4-10.2) mg/dl Magnesium 1.7 L (1.8-2.5) mg/dL Total Bilirubin 2.0 H (0.2-1.0) mg/dL AST 111 H (10-42) IU/L ALT 38 (10-60) IU/L Alkaline Phosphatase 129 H (42-121) IU/L Troponin I 0.06 H* (0.00-0.02) ng/ml B-Natriuretic Peptide 3760 H (0-100) pg/ml Total Protein 8.8 H (6.7-8.2) g/dl Albumin 2.7 L (3.2-5.5) g/dl Globulin 6.1 Albumin/Globulin Ratio 0.44 07/07/19 07/07/19 07/07/19 Range/Units 22:54 23:18 23:41 WBC (5.0-10.0) 10^3/uL RBC (4.6-6.2) 10^6/uL Hgb (14.0-18.0) g/dL Hct (40.0-54.0) % MCV (80-100) fL MCH (27.0-34.0) pg MCHC (33.0-35.0) g/dL Plt Count (150-450) 10^3/uL Neut % (Auto) (42.2-75.2) % Lymph % (Auto) (20.5-50.1) % [place] % (Auto) (2-8) % Eos % (Auto) (1.0-3.0) % Baso % (Auto) (0.0-1.0) % Sodium (135-145) mmol/L Potassium (3.6-5.0) mmol/L Chloride (101-111) mmol/L Carbon Dioxide (21.0-31.0) mmol/L Anion Gap BUN (7-18) mg/dL Creatinine (0.6-1.3) mg/dL Est Cr Clr Drug Dosing Estimated GFR (MDRD) BUN/Creatinine Ratio Glucose (74-105) mg/dL POC Glucose 30 L* 126 H 80 (70-105) mg/dl Lactic Acid (0.5-2.2) mmol/L Calcium (8.4-10.2) mg/dl Magnesium (1.8-2.5) mg/dL Total Bilirubin (0.2-1.0) mg/dL AST (10-42) IU/L ALT (10-60) IU/L Alkaline Phosphatase (42-121) IU/L Troponin I (0.00-0.02) ng/ml B-Natriuretic Peptide (0-100) pg/ml Total Protein (6.7-8.2) g/dl Albumin (3.2-5.5) g/dl Globulin Albumin/Globulin Ratio Meds: Medications Discontinued Medications Generic Name Dose Route Start Last Admin Trade Name Freq PRN Reason Stop Dose Admin Dextrose/Water 50 ml 07/07/19 21:28 07/07/19 23:00 Dextrose 50% In Water IVPUSH 07/07/19 21:29 50 ml ONETIME ONE Administration - Re-Assessments/Exams Free Text/Narrative Re-Assessment/Exam: Dr Jorge Alberto Corbett accepting patient, Tx via [facility]. Departure - Departure Time of Disposition: 23:22 Disposition: DC/Tfer to Acute Hospital 02 Condition: Fair Clinical Impression: History of HIV infection, History of hepatitis C, Bullous pemphigoid, Poor compliance with medication, Hypoglycemia, ESRD on hemodialysis Fluid overload Qualifiers: Hypervolemia type: unspecified Qualified Code(s): E87.70 - Fluid overload, unspecified - Discharge Information *PRESCRIPTION DRUG MONITORING PROGRAM REVIEWED*: No *COPY OF PRESCRIPTION DRUG MONITORING REPORT IN PATIENT CARLITO: No Referrals: PCP,Unobtain [Primary Care Provider] - Forms: ED Department Discharge Sepsis Event Note - Focused Exam Date Exam was Performed: 07/09/19 Time Exam was Performed: 04:20
== END 2019-07-08 00:45 ==
LOC: DL.ED 21:37
DX: E11.649 Type 2 diabetes mellitus with hypoglycemia without coma (principal); E87.70 Fluid overload, unspecified; L12.0 Bullous pemphigoid; I12.0 Hypertensive chronic kidney disease with stage 5 chronic kidney disease or end stage renal disease; E11.22 Type 2 diabetes mellitus with diabetic chronic kidney disease; N18.6 End stage renal disease; Z21 Asymptomatic human immunodeficiency virus [HIV] infection status; Z86.19 Personal history of other infectious and parasitic diseases; M10.9 Gout, unspecified; Z89.422 Acquired absence of other left toe(s); Z89.421 Acquired absence of other right toe(s); Z79.4 Long term (current) use of insulin
CPT/HCPCS: 36415; 71045; 80053; 82962; 83605; 83735; 83880; 84484; 85025; 99284; 99284-25

== ENCOUNTER 2019-08-17 06:38 | Emergency (ER) | payer MEDICARE ==
--- NOTE | 2019-08-17 06:45 | EDM.PDOC ---
<Chinedu Philip - Last Filed: 08/17/19 06:42> ED HPI GENERAL MEDICAL PROBLEM - General Chief Complaint: Respiratory Problem Stated Complaint: AMBULANCE Time Seen by Provider: 08/17/19 06:43 Source of Information: Reports: Patient History Limitations: Reports: No Limitations - History of Present Illness INITIAL COMMENTS - FREE TEXT/NARRATIVE: c/o SOB few days worse this am. missed 2x dialysis. usually [facility] [place] - Related Data Allergies Allergy/AdvReac Type Severity Reaction Status Date / Time No Known Allergies Allergy Verified 08/17/19 06:41 Home Meds: Home Meds Insulin Aspart [NovoLOG] See Protocol SQ TIDAC 10/17/14 [History] Insulin Detemir [Levemir] 10 units SQ BID 10/17/14 [History] Warfarin Sodium [Coumadin] 08/17/19 [History] Past Medical History HEENT History: Reports: None Cardiovascular History: Reports: Heart Valve Replacement, Hypertension Respiratory History: Reports: None Gastrointestinal History: Reports: Hepatitis Genitourinary History: Reports: Chronic Renal Insuffiency, Dialysis Musculoskeletal History: Reports: Amputation, Gout Neurological History: Reports: None Psychiatric History: Reports: Addiction Endocrine/Metabolic History: Reports: Diabetes, Type II, IDDM Hematologic History: Reports: None Immunologic History: Reports: HIV Oncologic (Cancer) History: Reports: None Dermatologic History: Reports: None - Infectious Disease History Infectious Disease History: Reports: Chicken Pox, Hepatitis C, HIV-Human Immunodeficiency Virus, MRSA - Past Surgical History Head Surgeries/Procedures: Reports: None HEENT Surgical History: Reports: Tonsillectomy Musculoskeletal Surgical History: Reports: Amputation, Other (See Below) Other Musculoskeletal Surgeries/Procedures:: toes DINESH feet Social & Family History - Family History Family Medical History: Noncontributory - Caffeine Use Caffeine Use: Reports: Coffee, Tea - Living Situation & Occupation Living situation: Reports: with Family Occupation: Disabled ED ROS GENERAL - Review of Systems Review Of Systems: Comprehensive ROS is negative, except as noted in HPI. ED EXAM, GENERAL - Physical Exam Exam: See Below Exam Limited By: No Limitations General Appearance: Alert, WD/WN, Mild Distress, Other (discomfort) Ears: Hearing Grossly Normal Throat/Mouth: Normal Voice, No Airway Compromise Head: Atraumatic Neck: Non-Tender, Full Range of Motion Respiratory/Chest: No Accessory Muscle Use, Rales, Rhonchi. No: Decreased Breath Sounds Cardiovascular: Regular Rate, Rhythm GI/Abdominal: Soft, Non-Tender Extremities: Pedal Edema, Other (right 2+, right BKA) Neurological: Alert, Oriented, Normal Cognition, No Motor/Sensory Deficits Psychiatric: Normal Affect, Normal Mood Skin Exam: Warm, Dry, Normal Color Lymphatic: No Adenopathy Course - Vital Signs Last Recorded V/S: Last Vital Signs Temp 96.2 F 08/17/19 06:47 Pulse 105 H 08/17/19 06:47 Resp 13 08/17/19 06:47 BP 112/96 H 08/17/19 06:47 Pulse Ox 100 08/17/19 06:47 - Orders/Labs/Meds Orders: Active Orders 24 hr Category Date Time Status Blood Glucose Check, Bedside [RC] ONETIME Care 08/17/19 09:00 Active Late Tray [DIET] Routine Diet 08/17/19 07:54 Active Chest 1V Frontal [CR] Urgent Exams 08/17/19 06:42 Taken Labs: Laboratory Tests 08/17/19 08/17/19 Range/Units 06:52 06:52 WBC 6.6 (5.0-10.0) 10^3/uL RBC 4.58 L (4.6-6.2) 10^6/uL Hgb 13.6 L D (14.0-18.0) g/dL Hct 43.7 (40.0-54.0) % MCV 95.4 (80-100) fL MCH 29.7 (27.0-34.0) pg MCHC 31.1 L (33.0-35.0) g/dL Plt Count 168 (150-450) 10^3/uL Neut % (Auto) 65.4 (42.2-75.2) % Lymph % (Auto) 21.2 (20.5-50.1) % [place] % (Auto) 9.7 H (2-8) % Eos % (Auto) 3.5 H (1.0-3.0) % Baso % (Auto) 0.2 (0.0-1.0) % Sodium 142 (135-145) mmol/L Potassium 3.6 (3.6-5.0) mmol/L Chloride 105 (101-111) mmol/L Carbon Dioxide 24.0 (21.0-31.0) mmol/L Anion Gap 16.6 BUN 55 H (7-18) mg/dL Creatinine 6.3 H D (0.6-1.3) mg/dL Est Cr Clr Drug Dosing 15.11 mL/min Estimated GFR (MDRD) 9 BUN/Creatinine Ratio 8.73 Glucose 55 L (74-105) mg/dL Calcium 7.6 L (8.4-10.2) mg/dl Total Bilirubin 0.9 (0.2-1.0) mg/dL AST 30 (10-42) IU/L ALT 15 (10-60) IU/L Alkaline Phosphatase 125 H (42-121) IU/L Troponin I 0.03 H* (0.00-0.02) ng/ml B-Natriuretic Peptide 3790 H (0-100) pg/ml Total Protein 8.6 H (6.7-8.2) g/dl Albumin 2.8 L (3.2-5.5) g/dl Globulin 5.8 Albumin/Globulin Ratio 0.48 Meds: Medications Discontinued Medications Generic Name Dose Route Start Last Admin Trade Name Freq PRN Reason Stop Dose Admin Dextrose/Water 25 ml 08/17/19 07:39 Dextrose 50% In Water IVPUSH 08/17/19 07:40 ONETIME ONE Dextrose/Water Confirm 08/17/19 07:39 08/17/19 07:56 Dextrose 50% In Water Administered 08/17/19 07:40 Not Given Dose 50 ml .ROUTE .STK-MED ONE Departure - Departure Disposition: DC/[facility]fer to [facility] 02 Clinical Impression: CKD (chronic kidney disease) stage V requiring chronic dialysis Fluid overload Qualifiers: Hypervolemia type: unspecified Qualified Code(s): E87.70 - Fluid overload, unspecified CHF (congestive heart failure) Qualifiers: Heart failure type: unspecified Heart failure chronicity: acute on chronic Qualified Code(s): I50.9 - Heart failure, unspecified - Discharge Information Referrals: PCP,Unobtain [Primary Care Provider] - Forms: ED Department Discharge, Interfacility Transfer EMTALA Sepsis Event Note - Focused Exam Vital Signs: Vital Signs Temp Pulse Resp BP Pulse Ox 08/17/19 06:47 96.2 F 105 H 13 112/96 H 100 <Bekah Balderrama - Last Filed: 08/17/19 09:37> Course - Radiology Interpretation Free Text/Narrative:: Chest xray: FINDINGS: Tubes, catheters and devices: There is a right sided dual lumen large bore catheter with the tip at the cavoatrial junction. Lungs: The lung volumes are decreased with vascular crowding secondary to elevation of the diaphragms which is likely on the basis of poor inspiratory effort. There is mild perihilar interstitial prominence consistent with volume overload or early congestive heart failure. Pleural space: There are bilateral small pleural effusions blunting the costophrenic angles. Heart/Mediastinum: Atrial appendage occlusion device is appreciated in place. Normal heart size Bones/joints: There are sternal wires consistent with previous sternotomy incision. IMPRESSION: There is mild perihilar interstitial prominence consistent with volume overload or early congestive heart failure. Thank you for allowing us to participate in the care of your patient. Dictated and Authenticated by: Jonathon Villela MD 08/17/2019 7:10 AM Central Time ([place] & [place]) See rad report - Re-Assessments/Exams Free Text/Narrative Re-Assessment/Exam: 08/17/19 08:54 Discussed patient case with Dr. Griffith who agreed to accept the patient for transfer to [facility] in [place]. Departure - Departure Time of Disposition: 09:00 Condition: Fair - Discharge Information *PRESCRIPTION DRUG MONITORING PROGRAM REVIEWED*: No *COPY OF PRESCRIPTION DRUG MONITORING REPORT IN PATIENT CARLITO: No Sepsis Event Note - Focused Exam Date Exam was Performed: 08/17/19 Time Exam was Performed: 09:36
[2019-08-17 06:54] VITALS: BP 112/96; PULSE 105
[2019-08-17 07:36] LABS: ANION GAP 16.6
[2019-08-17] MEDS ORDERED: 50% Dextrose in Water 50 ML Syringe ONE (07:39)
[2019-08-17] MEDS ORDERED: 50% Dextrose in Water 50 ML Syringe IVPUSH ONE (07:39)
== END 2019-08-17 09:19 ==
LOC: DL.ED 06:38
DX: I13.2 Hypertensive heart and chronic kidney disease with heart failure and with stage 5 chronic kidney disease, or end stage renal disease (principal); I50.9 Heart failure, unspecified; E11.22 Type 2 diabetes mellitus with diabetic chronic kidney disease; N18.6 End stage renal disease; Z21 Asymptomatic human immunodeficiency virus [HIV] infection status; Z99.2 Dependence on renal dialysis; Z79.4 Long term (current) use of insulin; Z79.01 Long term (current) use of anticoagulants; Z95.2 Presence of prosthetic heart valve
CPT/HCPCS: 36415; 71045; 80053; 82962; 83880; 84484; 85025; 99285-25

== ENCOUNTER 2021-05-16 10:55 | Emergency (ER) | payer MEDICARE, MEDICAID ==
[2021-05-16 11:26] VITALS: BP 92/52; PULSE 84
[2021-05-16] MEDS ORDERED: Albuterol 0.083% 2.5 MG/3 ML Neb Soln NEB ONE (12:32)
[2021-05-16 13:10] LABS: ANION GAP 24.2 mEq/L (7-13); CHLORIDE,CL 98 mmol/L (98-107); SODIUM,NA 133 mmol/L (136-145)
--- NOTE | 2021-05-16 13:12 | CR ---
EXAMINATION: Chest 1V Frontal SEX: Male AGE: 51 years CLINICAL HISTORY: 51-year-old male with cough and dyspnea. Interpretation: (AP portable chest) Several old healed fracture deformities adjacent ribs right hemithorax. Sternotomy wires. Processes Cardiac valve and atrial appendage. Less than optimal inspiratory effort. Normal cardiac silhouette (smaller than on comparison 17 August 2019). No vascular congestion, cephalization of flow or alveolar edema. No new lung mass or hilar lymphadenopathy. No dependent new pleural fluid accumulation. No alveolar infiltrate, air bronchograms or peripheral "groundglass" interstitial lung densities. No pneumothorax or pneumomediastinum. No cystic/bullous emphysematous lesions. CONCLUSION: No acute cardiopulmonary abnormality.
[2021-05-16] MEDS ORDERED: Ciprofloxacin 500 MG Tab PO ONE (13:25)
--- NOTE | 2021-05-16 13:25 | EDM.PDOC ---
ED HPI GENERAL MEDICAL PROBLEM - General Chief Complaint: General Stated Complaint: IN BY AMBULANCE Time Seen by Provider: 05/16/21 11:30 - History of Present Illness INITIAL COMMENTS - FREE TEXT/NARRATIVE: Gee is a 51-year-old man who presents with intermittent suprapubic pain, as well as feeling quite poorly for the past 48 to 72 hours. He states that he had family was staying with him last week, and that he started feeling poorly at that time. Gee is a renal dialysis patient, and unfortunately has missed his last 3 dialysis sessions. He is due to go tomorrow to [place], [place] for his next session. He reports no fevers or chills. Gee reports that he is anuric, has had no burning or discharge from his penis. Right Lower Chest Pain Score (Numeric/FACES): 5 - Related Data Allergies Allergy/AdvReac Type Severity Reaction Status Date / Time No Known Allergies Allergy Verified 08/17/19 06:41 Home Meds: Home Meds Insulin Aspart [NovoLOG] See Protocol SQ TIDAC 10/17/14 [History] Insulin Detemir [Levemir] 10 units SQ BID 10/17/14 [History] Warfarin Sodium [Coumadin] 08/17/19 [History] Past Medical History HEENT History: Reports: None Cardiovascular History: Reports: Heart Valve Replacement, Hypertension Respiratory History: Reports: None Gastrointestinal History: Reports: Hepatitis Genitourinary History: Reports: Chronic Renal Insuffiency, Dialysis Musculoskeletal History: Reports: Amputation, Gout Neurological History: Reports: None Psychiatric History: Reports: Addiction Endocrine/Metabolic History: Reports: Diabetes, Type II, IDDM Hematologic History: Reports: None Immunologic History: Reports: HIV Oncologic (Cancer) History: Reports: None Dermatologic History: Reports: None - Infectious Disease History Infectious Disease History: Reports: Chicken Pox, Hepatitis C, HIV-Human Immunodeficiency Virus, MRSA - Past Surgical History Head Surgeries/Procedures: Reports: None HEENT Surgical History: Reports: Tonsillectomy Musculoskeletal Surgical History: Reports: Amputation, Other (See Below) Other Musculoskeletal Surgeries/Procedures:: toes DINESH feet Social & Family History - Family History Family Medical History: No Pertinent Family History - Tobacco Use Tobacco Use Status *Q: Never Tobacco User Second Hand Smoke Exposure: No - Caffeine Use Caffeine Use: Reports: Coffee, Soda - Recreational Drug Use Recreational Drug Type: Reports: Marijuana/Hashish Other Recreational Drug Type: has his "weed card" - Living Situation & Occupation Living situation: Reports: with Family Occupation: Disabled ED ROS GENERAL - Review of Systems Review Of Systems: See Below (See HPI) Free Text/Narrative/Comment: See HPI ED EXAM, GENERAL - Physical Exam Exam: See Below Free Text/Narrative:: General: Gee is a 51-year-old man in no acute distress Ears: Canals are patent, tympanic membranes appear normal Oropharynx is clear, mucous membranes are moist Neck: Supple, no lymphadenopathy Heart: Regular rate and rhythm, 2 out of 6 systolic murmur best heard over left sternal border Lungs: Mild expiratory wheezing bilaterally with some coarse breath sounds centrally Abdomen: Soft, nontender to palpation, normal bowel sounds heard throughout Course - Vital Signs Last Recorded V/S: Last Vital Signs Temp 97.1 F 05/16/21 11:13 Pulse 84 05/16/21 11:13 Resp 16 05/16/21 11:13 BP 92/52 L 05/16/21 11:13 Pulse Ox 98 05/16/21 11:13 - Orders/Labs/Meds Labs: Laboratory Tests 05/16/21 05/16/21 05/16/21 Range/Units 11:00 12:34 12:34 WBC 19.2 H (5.0-10.0) 10^3/uL RBC 3.38 L (4.6-6.2) 10^6/uL Hgb 10.9 L D (14.0-18.0) g/dL Hct 32.0 L (40.0-54.0) % MCV 94.7 (80-100) fL MCH 32.2 (27.0-34.0) pg MCHC 34.1 (33.0-35.0) g/dL Plt Count 301 D (150-450) 10^3/uL Neut % (Auto) 86.3 H (42.2-75.2) % Lymph % (Auto) 7.9 L (20.5-50.1) % [place] % (Auto) 5.7 (2-8) % Eos % (Auto) 0.1 L (1.0-3.0) % Baso % (Auto) 0.0 (0.0-1.0) % Add Manual Diff Yes Neutrophils % (Manual) 71 (42-75) % Band Neutrophils % 11 % Lymphocytes % (Manual) 14 L (20-50) % Monocytes % (Manual) 4 (2-8) % Sodium 133 L (136-145) mmol/L Potassium 4.2 (3.5-5.1) mmol/L Chloride 98 (98-107) mmol/L Carbon Dioxide 15 L (21-32) mmol/L Anion Gap 24.2 H (7-13) mEq/L BUN 122 H (7-18) mg/dL Creatinine 25.43 H* (0.70-1.30) mg/dL Est Cr Clr Drug Dosing TNP Estimated GFR (MDRD) 2 BUN/Creatinine Ratio 4.8 (No establ ref range) Glucose 178 H (70-99) mg/dL Calcium 7.3 L (8.5-10.1) mg/dL Phosphorus 7.9 H (2.6-4.7) mg/dL Magnesium 2.6 H (1.8-2.4) mg/dL Total Bilirubin 0.7 (0.2-1.0) mg/dL AST 95 H (15-37) U/L ALT 86 H (16-63) U/L Alkaline Phosphatase 100 (46-116) U/L Total Protein 8.1 (6.4-8.2) g/dL Albumin 2.6 L (3.4-5.0) g/dL Globulin 5.5 Albumin/Globulin Ratio 0.47 SARS-CoV-2 RNA (LIBBY) Negative (NEGATIVE) Meds: Medications Discontinued Medications Generic Name Dose Route Start Last Admin Trade Name Freq PRN Reason Stop Dose Admin Albuterol 2.5 mg 05/16/21 12:32 05/16/21 13:40 Albuterol 0.083% 2.5 Mg/3 Ml Neb Soln NEB 05/16/21 12:33 Not Given ONETIME ONE Ciprofloxacin 500 mg 05/16/21 13:25 05/16/21 13:40 Ciprofloxacin 500 Mg Tab PO 05/16/21 13:26 500 mg ONETIME ONE Administration Departure - Departure Time of Disposition: 13:21 Disposition: Home, Self-Care 01 Clinical Impression: End stage renal disease - Discharge Information *PRESCRIPTION DRUG MONITORING PROGRAM REVIEWED*: Not Applicable *COPY OF PRESCRIPTION DRUG MONITORING REPORT IN PATIENT CARLITO: Not Applicable Referrals: PCP,None [Primary Care Provider] - Forms: ED Department Discharge Additional Instructions: Keep follow-up appointment as scheduled with Geovanna tomorrow. Sepsis Event Note (ED) - Evaluation Sepsis Screening Result: No Definite Risk - Problem List & Annotations (1) End stage renal disease SNOMED Code(s): 58325607 Code(s): N18.6 - END STAGE RENAL DISEASE Status: Acute - Problem List Review Problem List Initiated/Reviewed/Updated: Yes - Assessment/Plan Assessment:: 1. 51-year-old man with end-stage renal disease, currently on hemodialysis 2. Elevated WBC count, with negative chest x-ray Plan: 1. I discussed with Gee that his elevated white blood count with left shift is concerning. He did not want to stay for any further evaluation. With him being a dialysis patient, I did give him ciprofloxacin 500 mg x 1 dose. This should stay in his system until it is dialyzed tomorrow. He will report back immediately to the ER or to the clinic if he has further fever or is unable to tolerate oral intake
== END 2021-05-16 13:42 | disposition home or self-care (01) ==
LOC: DL.ED 10:55
DX: I12.0 Hypertensive chronic kidney disease with stage 5 chronic kidney disease or end stage renal disease (principal); E11.22 Type 2 diabetes mellitus with diabetic chronic kidney disease; N18.6 End stage renal disease; M10.9 Gout, unspecified; Z79.01 Long term (current) use of anticoagulants; Z79.4 Long term (current) use of insulin; Z20.822 Contact with and (suspected) exposure to COVID-19; Z99.2 Dependence on renal dialysis
CPT/HCPCS: 36415; 71045; 80053; 83735; 84100; 85025; 99285; A9270; U0002

== ENCOUNTER 2021-06-14 09:43 | Emergency (ER) | payer MEDICARE, MEDICAID ==
--- NOTE | 2021-06-14 10:09 | EDM.PDOC ---
ED HPI GENERAL MEDICAL PROBLEM - General Chief Complaint: General Stated Complaint: AMBULANCE Time Seen by Provider: 06/14/21 09:50 Source of Information: Reports: Patient (very limited information given by patient), EMS History Limitations: Reports: Altered Mental Status - History of Present Illness INITIAL COMMENTS - FREE TEXT/NARRATIVE: This 51 yo male patient was brought to the ED by [facility] due to being found on the floor of his home not responding normally. The patient reported to EMS that he missed dialysis on Sunday, but did not give any additional information. The p atient denied any pain. The patient denied any drug or alcohol use. The patient could not recall when he last had dialysis. Onset: Unknown/Unsure Duration: Constant Location: Reports: Generalized Quality: Reports: Other Severity: Moderate Improves with: Reports: None Worsens with: Reports: None Context: Reports: Other Associated Symptoms: Reports: No Other Symptoms - Related Data Allergies Allergy/AdvReac Type Severity Reaction Status Date / Time No Known Allergies Allergy Verified 08/17/19 06:41 Home Meds: Home Meds Insulin Aspart [NovoLOG] See Protocol SQ TIDAC 10/17/14 [History] Insulin Detemir [Levemir] 10 units SQ BID 10/17/14 [History] Warfarin Sodium [Coumadin] 08/17/19 [History] atorvaSTATin [Lipitor] 40 mg PO ASDIRECTED 06/14/21 [History] Past Medical History HEENT History: Reports: None Cardiovascular History: Reports: Heart Valve Replacement, Hypertension Respiratory History: Reports: None Gastrointestinal History: Reports: Hepatitis Genitourinary History: Reports: Chronic Renal Insuffiency, Dialysis Musculoskeletal History: Reports: Amputation, Gout Neurological History: Reports: None Psychiatric History: Reports: Addiction Endocrine/Metabolic History: Reports: Diabetes, Type II, IDDM Hematologic History: Reports: None Immunologic History: Reports: HIV Oncologic (Cancer) History: Reports: None Dermatologic History: Reports: None - Infectious Disease History Infectious Disease History: Reports: Chicken Pox, Hepatitis C, HIV-Human Immunodeficiency Virus, MRSA - Past Surgical History Head Surgeries/Procedures: Reports: None HEENT Surgical History: Reports: Tonsillectomy Musculoskeletal Surgical History: Reports: Amputation, Other (See Below) Other Musculoskeletal Surgeries/Procedures:: toes DINESH feet Social & Family History - Family History Family Medical History: No Pertinent Family History - Caffeine Use Caffeine Use: Reports: Coffee, Tea - Living Situation & Occupation Living situation: Reports: with Family Occupation: Disabled ED ROS GENERAL - Review of Systems Review Of Systems: Comprehensive ROS is negative, except as noted in HPI. ED EXAM, GENERAL - Physical Exam Exam: See Below Exam Limited By: Altered Mental Status General Appearance: Alert, WD/WN, Mild Distress Eye Exam: Bilateral Eye: EOMI, Normal Inspection, PERRL Ears: Normal External Exam, Normal Canal, Hearing Grossly Normal, Normal TMs Nose: Normal Inspection, Normal Mucosa, No Blood Throat/Mouth: Normal Inspection, Normal Lips, Normal Teeth, Normal Gums, Normal Oropharynx, Normal Voice, No Airway Compromise, Other (dry) Head: Atraumatic, Normocephalic Neck: Normal Inspection, Supple, Non-Tender, Full Range of Motion Respiratory/Chest: Decreased Breath Sounds (with decreased effort) Cardiovascular: Normal Peripheral Pulses, Regular Rate, Rhythm, No Edema, No Gallop, No JVD, No Murmur, No Rub GI/Abdominal: Normal Bowel Sounds, Soft, Non-Tender, No Organomegaly, No Distention, No Abnormal Bruit, No Mass (Male) Exam: Deferred Rectal (Males) Exam: Deferred Extremities: Other (left below the knee amputation) Neurological: Alert, Slow to Respond Psychiatric: Anxious Skin Exam: Warm, Dry, Intact, Normal Color, No Rash Lymphatic: No Adenopathy #1 Interpretation EKG Date: 06/14/21 Time: 09:54 Rhythm: Other (Sinus Tach) [place]: Normal P-Wave: Present QRS: Normal ST-T: Normal QT: Normal Comparison: No Change Course - Vital Signs Last Recorded V/S: Last Vital Signs Temp 99 F 06/14/21 10:23 Pulse 111 H 06/14/21 10:23 Resp 20 06/14/21 10:23 BP 107/67 06/14/21 10:23 Pulse Ox 90 L 06/14/21 10:23 - Orders/Labs/Meds Orders: Active Orders 24 hr Category Date Time Status EKG Documentation Completion [RC] STAT Care 06/14/21 09:52 Active CULTURE BLOOD [BC] Stat Lab 06/14/21 09:52 Ordered CULTURE URINE [RM] Stat Lab 06/14/21 11:09 Received REFLEX LACTIC ACID YES OR NO [CHEM] Routine Lab 06/14/21 11:01 Received cefTRIAXone [Rocephin] 1 gm Med 06/14/21 12:04 Ordered Sodium Chloride 0.9% [Normal Saline AdvBag] 50 ml IV ONETIME Medication Orders Ceftriaxone Sodium 1 gm/ (Sodium Chloride) 50 mls @ 100 mls/hr IV ONETIME ONE Stop: 06/14/21 12:33 Labs: Laboratory Tests 06/14/21 06/14/21 06/14/21 Range/Units 09:48 10:20 10:20 WBC 16.9 H (5.0-10.0) 10^3/uL RBC 2.89 L (4.6-6.2) 10^6/uL Hgb 9.1 L D (14.0-18.0) g/dL Hct 27.3 L (40.0-54.0) % MCV 94.5 (80-100) fL MCH 31.5 (27.0-34.0) pg MCHC 33.3 (33.0-35.0) g/dL Plt Count 118 L D (150-450) 10^3/uL Neut % (Auto) 93.3 H (42.2-75.2) % Lymph % (Auto) 3.2 L (20.5-50.1) % [place] % (Auto) 3.4 (2-8) % Eos % (Auto) 0.1 L (1.0-3.0) % Baso % (Auto) 0.0 (0.0-1.0) % Add Manual Diff Yes Neutrophils % (Manual) 81 H (42-75) % Band Neutrophils % 15 % Lymphocytes % (Manual) 1 L (20-50) % Monocytes % (Manual) 2 (2-8) % Metamyelocytes % 1 Platelet Estimate Decreased Ovalocytes 1+ slight Sodium 134 L (136-145) mmol/L Potassium 3.7 (3.5-5.1) mmol/L Chloride 95 L (98-107) mmol/L Carbon Dioxide 17 L (21-32) mmol/L Anion Gap 25.7 H (7-13) mEq/L BUN 100 H (7-18) mg/dL Creatinine 17.15 H* D (0.70-1.30) mg/dL Est Cr Clr Drug Dosing 5.26 mL/min Estimated GFR (MDRD) 3 BUN/Creatinine Ratio 5.8 (No establ ref range) Glucose 148 H (70-99) mg/dL Lactic Acid (0.4-2.0) mmol/L Calcium 7.0 L (8.5-10.1) mg/dL Magnesium 2.0 (1.8-2.4) mg/dL Total Bilirubin 1.3 H (0.2-1.0) mg/dL AST 118 H (15-37) U/L ALT 60 (16-63) U/L Alkaline Phosphatase 89 (46-116) U/L Ammonia (11-32) umol/L Troponin I High Sens 758 H* (<=76) pg/mL Total Protein 8.2 (6.4-8.2) g/dL Albumin 2.4 L (3.4-5.0) g/dL Globulin 5.8 Albumin/Globulin Ratio 0.41 Amylase 44 (25-115) U/L Lipase 46 L (73-393) U/L Urine Color (YELLOW) Urine Appearance (CLEAR) Urine pH (5.0-9.0) Ur Specific [place] (1.005-1.030) Urine Protein (NEGATIVE) Urine Glucose (UA) (NEGATIVE) Urine Ketones (NEGATIVE) Urine Occult Blood (NEGATIVE) Urine Nitrite (NEGATIVE) Urine Bilirubin (NEGATIVE) Urine Urobilinogen (0.2-1.0) mg/dL Ur Leukocyte Esterase (NEGATIVE) Urine RBC (0-5) /HPF Urine WBC (0-5/HPF) /HPF Ur Epithelial Cells (NOT SEEN) /HPF Urine Bacteria (0-FEW/HPF) /HPF Salicylates (2.8-20(Therapeutic)) mg/dL Urine Opiates Screen (NEGATIVE) Ur Oxycodone Screen (NEGATIVE) Urine Methadone Screen (NEGATIVE) Acetaminophen 0 L (10-30 (Therapeutic)) ug/mL Ur Barbiturates Screen (NEGATIVE) U Tricyclic Antidepress (NEGATIVE) Ur Phencyclidine Scrn (NEGATIVE) Ur Amphetamine Screen (NEGATIVE) U Methamphetamines Scrn (NEGATIVE) Urine MDMA Screen (NEGATIVE) U Benzodiazepines Scrn (NEGATIVE) Urine Cocaine Screen (NEGATIVE) U Marijuana (THC) Screen (NEGATIVE) Ethyl Alcohol < 3 (0) mg/dL Ketones Negative Influenza Type A RNA Negative (NEGATIVE) Influenza Type B RNA Negative (NEGATIVE) SARS-CoV-2 RNA (LIBBY) Negative (NEGATIVE) 06/14/21 06/14/21 06/14/21 Range/Units 10:20 10:20 10:20 WBC (5.0-10.0) 10^3/uL RBC (4.6-6.2) 10^6/uL Hgb (14.0-18.0) g/dL Hct (40.0-54.0) % MCV (80-100) fL MCH (27.0-34.0) pg MCHC (33.0-35.0) g/dL Plt Count (150-450) 10^3/uL Neut % (Auto) (42.2-75.2) % Lymph % (Auto) (20.5-50.1) % [place] % (Auto) (2-8) % Eos % (Auto) (1.0-3.0) % Baso % (Auto) (0.0-1.0) % Add Manual Diff Neutrophils % (Manual) (42-75) % Band Neutrophils % % Lymphocytes % (Manual) (20-50) % Monocytes % (Manual) (2-8) % Metamyelocytes % Platelet Estimate Ovalocytes Sodium (136-145) mmol/L Potassium (3.5-5.1) mmol/L Chloride (98-107) mmol/L Carbon Dioxide (21-32) mmol/L Anion Gap (7-13) mEq/L BUN (7-18) mg/dL Creatinine (0.70-1.30) mg/dL Est Cr Clr Drug Dosing mL/min Estimated GFR (MDRD) BUN/Creatinine Ratio (No establ ref range) Glucose (70-99) mg/dL Lactic Acid 3.1 H* (0.4-2.0) mmol/L Calcium (8.5-10.1) mg/dL Magnesium (1.8-2.4) mg/dL Total Bilirubin (0.2-1.0) mg/dL AST (15-37) U/L ALT (16-63) U/L Alkaline Phosphatase (46-116) U/L Ammonia < 10 L (11-32) umol/L Troponin I High Sens (<=76) pg/mL Total Protein (6.4-8.2) g/dL Albumin (3.4-5.0) g/dL Globulin Albumin/Globulin Ratio Amylase (25-115) U/L Lipase (73-393) U/L Urine Color (YELLOW) Urine Appearance (CLEAR) Urine pH (5.0-9.0) Ur Specific [place] (1.005-1.030) Urine Protein (NEGATIVE) Urine Glucose (UA) (NEGATIVE) Urine Ketones (NEGATIVE) Urine Occult Blood (NEGATIVE) Urine Nitrite (NEGATIVE) Urine Bilirubin (NEGATIVE) Urine Urobilinogen (0.2-1.0) mg/dL Ur Leukocyte Esterase (NEGATIVE) Urine RBC (0-5) /HPF Urine WBC (0-5/HPF) /HPF Ur Epithelial Cells (NOT SEEN) /HPF Urine Bacteria (0-FEW/HPF) /HPF Salicylates < 2.8 L (2.8-20(Therapeutic)) mg/dL Urine Opiates Screen (NEGATIVE) Ur Oxycodone Screen (NEGATIVE) Urine Methadone Screen (NEGATIVE) Acetaminophen (10-30 (Therapeutic)) ug/mL Ur Barbiturates Screen (NEGATIVE) U Tricyclic Antidepress (NEGATIVE) Ur Phencyclidine Scrn (NEGATIVE) Ur Amphetamine Screen (NEGATIVE) U Methamphetamines Scrn (NEGATIVE) Urine MDMA Screen (NEGATIVE) U Benzodiazepines Scrn (NEGATIVE) Urine Cocaine Screen (NEGATIVE) U Marijuana (THC) Screen (NEGATIVE) Ethyl Alcohol (0) mg/dL Ketones Influenza Type A RNA (NEGATIVE) Influenza Type B RNA (NEGATIVE) SARS-CoV-2 RNA (LIBBY) (NEGATIVE) 06/14/21 06/14/21 Range/Units 11:09 11:09 WBC (5.0-10.0) 10^3/uL RBC (4.6-6.2) 10^6/uL Hgb (14.0-18.0) g/dL Hct (40.0-54.0) % MCV (80-100) fL MCH (27.0-34.0) pg MCHC (33.0-35.0) g/dL Plt Count (150-450) 10^3/uL Neut % (Auto) (42.2-75.2) % Lymph % (Auto) (20.5-50.1) % [place] % (Auto) (2-8) % Eos % (Auto) (1.0-3.0) % Baso % (Auto) (0.0-1.0) % Add Manual Diff Neutrophils % (Manual) (42-75) % Band Neutrophils % % Lymphocytes % (Manual) (20-50) % Monocytes % (Manual) (2-8) % Metamyelocytes % Platelet Estimate Ovalocytes Sodium (136-145) mmol/L Potassium (3.5-5.1) mmol/L Chloride (98-107) mmol/L Carbon Dioxide (21-32) mmol/L Anion Gap (7-13) mEq/L BUN (7-18) mg/dL Creatinine (0.70-1.30) mg/dL Est Cr Clr Drug Dosing mL/min Estimated GFR (MDRD) BUN/Creatinine Ratio (No establ ref range) Glucose (70-99) mg/dL Lactic Acid (0.4-2.0) mmol/L Calcium (8.5-10.1) mg/dL Magnesium (1.8-2.4) mg/dL Total Bilirubin (0.2-1.0) mg/dL AST (15-37) U/L ALT (16-63) U/L Alkaline Phosphatase (46-116) U/L Ammonia (11-32) umol/L Troponin I High Sens (<=76) pg/mL Total Protein (6.4-8.2) g/dL Albumin (3.4-5.0) g/dL Globulin Albumin/Globulin Ratio Amylase (25-115) U/L Lipase (73-393) U/L Urine Color [place] (YELLOW) Urine Appearance Cloudy (CLEAR) Urine pH 7.0 (5.0-9.0) Ur Specific [place] 1.020 (1.005-1.030) Urine Protein >=300 H (NEGATIVE) Urine Glucose (UA) Negative (NEGATIVE) Urine Ketones Negative (NEGATIVE) Urine Occult Blood Large H (NEGATIVE) Urine Nitrite Negative (NEGATIVE) Urine Bilirubin Small H (NEGATIVE) Urine Urobilinogen 0.2 (0.2-1.0) mg/dL Ur Leukocyte Esterase Large H (NEGATIVE) Urine RBC Semi-packed H (0-5) /HPF Urine WBC Semi-packed H (0-5/HPF) /HPF Ur Epithelial Cells Few (NOT SEEN) /HPF Urine Bacteria Many H (0-FEW/HPF) /HPF Salicylates (2.8-20(Therapeutic)) mg/dL Urine Opiates Screen Negative (NEGATIVE) Ur Oxycodone Screen Negative (NEGATIVE) Urine Methadone Screen Negative (NEGATIVE) Acetaminophen (10-30 (Therapeutic)) ug/mL Ur Barbiturates Screen Negative (NEGATIVE) U Tricyclic Antidepress Negative (NEGATIVE) Ur Phencyclidine Scrn Negative (NEGATIVE) Ur Amphetamine Screen Negative (NEGATIVE) U Methamphetamines Scrn Negative (NEGATIVE) Urine MDMA Screen Negative (NEGATIVE) U Benzodiazepines Scrn Negative (NEGATIVE) Urine Cocaine Screen Negative (NEGATIVE) U Marijuana (THC) Screen Negative (NEGATIVE) Ethyl Alcohol (0) mg/dL Ketones Influenza Type A RNA (NEGATIVE) Influenza Type B RNA (NEGATIVE) SARS-CoV-2 RNA (LIBBY) (NEGATIVE) Meds: Medications Generic Name Dose Route Start Last Admin Trade Name Freq PRN Reason Stop Dose Admin Ceftriaxone Sodium 1 gm/ 50 mls @ 100 mls/hr 06/14/21 12:04 Sodium Chloride IV 06/14/21 12:33 ONETIME ONE Departure - Departure Time of Disposition: 12:20 Disposition: DC/Tfer to [facility] 02 Condition: Poor Clinical Impression: Dialysis patient, noncompliant Pneumonia Qualifiers: Pneumonia type: due to unspecified organism Laterality: bilateral Lung location: lower lobe of lung Qualified Code(s): J18.9 - Pneumonia, unspecified organism - Discharge Information *PRESCRIPTION DRUG MONITORING PROGRAM REVIEWED*: Not Applicable *COPY OF PRESCRIPTION DRUG MONITORING REPORT IN PATIENT CARLITO: Not Applicable Forms: ED Department Discharge Care Plan Goals: Discussed the patient's history, examination, lab, x-ray and EKG results with Dr. Hahn ([facility]). Dr. Hahn accepted the patient for continued evaluation and further management as an inpatient at [facility]. The patient will be transported by [facility]. Sepsis Event Note (ED) - Focused Exam Vital Signs: Vital Signs Temp Pulse Resp BP Pulse Ox 06/14/21 10:23 99 F 111 H 20 107/67 90 L - My Orders Last 24 Hours: My Active Orders 06/14/21 09:52 EKG Documentation Completion [RC] STAT CULTURE BLOOD [BC] Stat 06/14/21 11:01 REFLEX LACTIC ACID YES OR NO [CHEM] Routine 06/14/21 11:09 CULTURE URINE [RM] Stat 06/14/21 12:04 cefTRIAXone [Rocephin] 1 gm Sodium Chloride 0.9% [Normal Saline AdvBag] 50 ml IV ONETIME - Assessment/Plan Last 24 Hours: My Active Orders 06/14/21 09:52 EKG Documentation Completion [RC] STAT CULTURE BLOOD [BC] Stat 06/14/21 11:01 REFLEX LACTIC ACID YES OR NO [CHEM] Routine 06/14/21 11:09 CULTURE URINE [RM] Stat 06/14/21 12:04 cefTRIAXone [Rocephin] 1 gm Sodium Chloride 0.9% [Normal Saline AdvBag] 50 ml IV ONETIME
[2021-06-14 10:28] VITALS: BP 107/67; PULSE 111
[2021-06-14 10:52] LABS: CHLORIDE,CL 95 mmol/L (98-107); SODIUM,NA 134 mmol/L (136-145)
[2021-06-14 10:53] LABS: ANION GAP 25.7 mEq/L (7-13)
[2021-06-14 11:02] LABS: ACETAMINOPHEN 0 ug/mL (10-30 (Therapeutic))
[2021-06-14 11:16] LABS: CORONAVIRUS COVID-19 NAA NEGATIVE (NEGATIVE)
[2021-06-14 11:35] LABS: AMPHETAMINES,URINE NEGATIVE (NEGATIVE); BARBITURATES,URINE NEGATIVE (NEGATIVE); BENZODIAZEPINE,URINE NEGATIVE (NEGATIVE); MDMA (ECSTASY), URINE NEGATIVE (NEGATIVE); METHADONE,URINE NEGATIVE (NEGATIVE); METHAMPHETAMINES,URINE NEGATIVE (NEGATIVE); OPIATES,URINE NEGATIVE (NEGATIVE); OXYCODONE,URINE NEGATIVE (NEGATIVE); PHENCYCLIDINE,URINE NEGATIVE (NEGATIVE); TCA,URINE NEGATIVE (NEGATIVE)
--- NOTE | 2021-06-14 11:38 | CR ---
PROCEDURE INFORMATION: Exam: XR Chest Exam date and time: 06/14/2021 11:27 AM Age: 51 years old Clinical indication: Other: Elevated wbc TECHNIQUE: Imaging protocol: XR of the chest. Views: 1 view. COMPARISON: CR Chest 1V Frontal 05/16/2021 12:49 PM FINDINGS: Lungs: Low lung volumes. Atelectasis present right lung base. Pleural spaces: Unremarkable. No pleural effusion. No pneumothorax. Heart/Mediastinum: Cardiac valve replacement. Bones/joints: Median sternotomy wires. IMPRESSION: Low lung volumes with right lower lobe atelectasis/pneumonia.
[2021-06-14] MEDS ORDERED: cefTRIAXone 1 GM in Sodium Chloride 0.9% 50 ML IV ONE (12:04)
== END 2021-06-14 16:00 ==
LOC: DL.ED 09:43
DX: J18.9 Pneumonia, unspecified organism (principal); E11.22 Type 2 diabetes mellitus with diabetic chronic kidney disease; I12.9 Hypertensive chronic kidney disease with stage 1 through stage 4 chronic kidney disease, or unspecified chronic kidney disease; N18.9 Chronic kidney disease, unspecified; Z99.2 Dependence on renal dialysis; Z20.822 Contact with and (suspected) exposure to COVID-19; Z79.4 Long term (current) use of insulin; Z79.01 Long term (current) use of anticoagulants; Z79.899 Other long term (current) drug therapy
CPT/HCPCS: 0240U; 36415; 71045; 80053; 80143; 80179; 80305; 80307; 81001; 82009; 82140; 82150; 83605; 83690; 83735; 84484; 85025; 87040; 87077; 87086; 87088; 87186; 93005; 96365; 99285; J0696